=== PATIENT | female | born 1950 | race African-American/Black ===

== ENCOUNTER 2020-08-15 12:56 | Inpatient (IN) | payer MEDICARE, MEDICAID, SELFPAY ==
[2020-08-15] VITALS (20 sets, daily range): BP systolic 80–118; BP diastolic 53–91; PULSE 101–117; RESP 18–32; TEMP 36.2–36.6; O2SAT 92–100; BMI 36.8; BMI 35.7; BMI 35.8
--- NOTE | 2020-08-15 12:57 | EKG12_ITS ---
Test Reason : AM EKG Blood Pressure : / mmHG Vent. Rate : 114 BPM Atrial Rate : 114 BPM P-R Int : 154 ms QRS Dur : 084 ms QT Int : 342 ms P-R-T Axes : 029 -15 089 degrees QTc Int : 471 ms Sinus tachycardia Otherwise normal ECG When compared with ECG of 15-AUG-2020 13:10, MANUAL COMPARISON REQUIRED, DATA IS UNCONFIRMED Confirmed by KENNY CORTÉS, ANGUS ([id number]), fashion editor SOLEDAD BADILLO ([id number]) on 08/19/2020 10:47:04 AM Referred By: JASON Confirmed By:ANGUS COX MD
--- NOTE | 2020-08-15 12:57 | CT_ITS ---
STUDY: CT BRAIN WITHOUT CONTRAST REASON FOR EXAM: Female, 69 years old. STROKE, FACIAL DROOP RADIATION DOSAGE (If Supplied By Facility): CTDIvol = ( 60.81 ) mGy, DLP = ( 1067.08 ) mGycm TECHNIQUE: Transaxial CT imaging of the brain was performed without administration of intravenous contrast material. Individualized dose optimization techniques were used for this CT. COMPARISON: No relevant priors. FINDINGS: Normal soft tissue structures. Normal calvarium. There is mild cerebral atrophy with widening of the extra-axial spaces and ventricular dilatation. There are areas of decreased attenuation within the white matter tracts of the supratentorial brain, consistent with microvascular disease changes. There is evidence of prior small lacunar infarcts in the basal ganglia bilaterally as well as the left thalamus.. Normal brainstem. Normal cerebellum. There is no intracranial hemorrhage. There are no findings of an acute ischemic infarction. Normal visualized paranasal sinuses. CT/Brain/Head without Contrast IMPRESSION: Chronic involutional changes of the brain. Small old lacunar infarcts in the basal ganglia bilaterally as well as the left thalamus. N.B. : The above information has been verbally conveyed by Eyal Campoverde to JULIANO West on 08/15/2020 13:20:33 (ET). Electronically Signed: Eyal Campoverde, at 13:21 EDT , Service support ,
[2020-08-15 13:15] LABS: Bedside Glucose 79 mg/dL (70-110)
--- NOTE | 2020-08-15 13:32 | ED.RN ---
Dysphagia screening not done. Pt will not stay awake
[2020-08-15] MEDS: 0.9% Normal Saline 1,000 ML 999 ML IV ×2 (13:39→14:06)
--- NOTE | 2020-08-15 13:41 | ED.RN ---
dr flores said facial droop chronic. d/c neuro checks
[2020-08-15 13:53] LABS: Absolute Lymphocyte Count 0.65 X10^3/uL (0.83-4.51); Absolute Neutrophil Count 12.1 X10^3/uL (2.0-7.7); Basophil# 0.02 X10^3/uL; Basophil% 0.2 % (0-1); Hematocrit 37.1 % (37-47); Lymphocyte # 0.65 X10^3/ul (4.0); Mean Corp Hgb Conc 29.6 g/dL (32-36); Mean Corpuscular Volume 87.7 fL (81-99); Mean Platelet Vol. 10.5 fl (6.2-12.0); Monocyte# 0.21 X10^3/uL; Monocyte% 1.6 % (0-10); NRBC Flagged by Analyzer 0 % (0-5); Neutrophil # 12.12 X10^3/uL (2.7-7.7); Neutrophil % 92.4 % (47-70); POSITIVE MORPHOLOGY YES; Platelet Count 176 K/mm3 (150-450); RBC Distribution Width CV 14.6 % (11.6-14.6); RBC Distribution Width SD 46.6 fl (35.1-43.9); Red Blood Count 4.23 M/mm3 (4.2-5.4); White Blood Count 13.1 K/mm3 (4.4-11.0)
[2020-08-15 14:13] LABS: Mucous, Urine 0 SEEN /hpf (<or=2+)
[2020-08-15 14:17] LABS: Partial Thromboplast Time 26.6 Seconds (24.1-36.2)
[2020-08-15 14:18] LABS: International Normalized Ratio 1.2; Prothrombin Time (Protime)PT. 14.9 SECONDS (11.7-14.9)
[2020-08-15 14:20] LABS: Color, Urine Yellow (Yellow); Glucose, Dipstick Normal (Normal); Ketone-Dipstick 5 mg/dl (Negative); Leukocyte Esterase-Dipstick 500 /ul (Negative); Nitrite-Dipstick Negative (Negative); Occult Blood-Urine 50 /ul (Negative); Protein-Dipstick 30 mg/dl (Negative); Urine Bilirubin Dipstick Negative (Negative); Urine Clarity Sl. Cloudy (Clear); Urine Urobilinogen Normal (Normal)
[2020-08-15 14:23] LABS: Anion Gap 9 (5-15); BUN 38 mg/dL (7-18); BUN/Creat Ratio 20.7 RATIO (10-20); Calcium,Total 9.3 mg/dL (8.5-10.1); Chloride 117 mmol/L (98-107); Creatinine, Serum 1.84 mg/dL (0.55-1.02); Differential Comment SCANNED; Differential Indicated SCAN CRITERIA MET; EST Glomerular Filtration Rate 29 mL/min (>60); Est Glom Filt Rate - Afr Amer 35 mL/min (>60); Estimated Creatinine Clearance 27.01 ml/min; Glucose 68 mg/dL (74-106); Lactic Acid 3.9 mmol/L (0.4-1.9); Potassium 3.1 mmol/L (3.5-5.1); Sodium Level 146 mmol/L (136-145)
[2020-08-15 14:38] LABS: Bacteria 3+ /hpf (None Seen); Red Blood Cells-Urine 0-5 SEEN /hpf (0-5); Squamous Epithelial Cells - UA 5-10 SEEN /hpf (5-10); White Blood Cells 50-100 SEEN /hpf (0-5)
--- NOTE | 2020-08-15 14:40 | RAD_ITS ---
STUDY: X-RAY CHEST REASON FOR EXAM: Female, 69 years old. STROKE, FACIAL DROOP TECHNIQUE: Single AP portable view of the chest. COMPARISON: None. FINDINGS: EKG electrodes are seen. The lungs are clear and expanded. There is no demonstrated pleural abnormality. Normal size heart. Normal mediastinum and yoseph. Normal visualized pulmonary arteries. There is atherosclerotic tortuosity of the aortic arch and descending thoracic aorta. There are mild degenerative changes of the visualized thoracic spine. Normal visualized ribs, clavicles, and shoulders. There is no demonstrated abnormality of the visualized soft tissue structures of the upper abdomen. RAD/Chest 1 View IMPRESSION: No acute abnormality is seen. Electronically Signed: Eyal Campoverde, at 14:55 EDT , Service support ,
--- NOTE | 2020-08-15 15:09 | PCM.HP.STD ---
Problem List (1) Type 2 diabetes mellitus Status: Chronic (2) History of CVA (cerebrovascular accident) Status: Chronic Comment: Chronic left facial droop (3) Hypertension Status: Chronic (4) Hyperlipemia Status: Chronic (5) Iron deficiency anemia Status: Chronic (6) UTI (urinary tract infection) Status: Acute (7) Severe sepsis Status: Acute (8) NSTEMI (non-ST elevated myocardial infarction) Status: Acute History of Present Illness Date of Admission: 08/15/20 Chief Complaint: Unresponsive at [facility]. The patient is a 69 year old F he was found to be unresponsive at [facility]. Patient was also noted to have a left facial droop by EMS however this was discovered to be chronic in nature from prior CVA. No family at bedside during evaluation. Unable to obtain HPI from patient due to lethargy and confusion. She denies symptoms or complaints when asked. Per [facility] records, she has a past medical history of CVA, type 2 diabetes mellitus, hypertension, hyperlipidemia, iron deficiency anemia, GERD. Past Medical History Past Medical History (Chronic Problems): Chronic Problems Type 2 diabetes mellitus (Chronic) History of CVA (cerebrovascular accident) (Chronic) Chronic left facial droop Hypertension (Chronic) Hyperlipemia (Chronic) Iron deficiency anemia (Chronic) Home Medications: Ambulatory Orders Medication Instructions Recorded Acetaminophen [Tylenol Extra 1,000 mg PO BID 08/15/20 Strength] Amlodipine [Norvasc] 10 mg PO DAILY 08/15/20 Atorvastatin Calcium 40 mg PO QHS 08/15/20 Ferrous Sulfate [Ferosul] 325 mg PO DAILY 08/15/20 Insulin Aspart [Novolog Flexpen 4 units SC TIDCM 08/15/20 ([facility])] Insulin Aspart [Novolog Flexpen See Protocol SC BIDCM 08/15/20 ([facility])] Insulin Glargine,Hum.rec.anlog 40 unit SQ QHS 08/15/20 [Basaglar Kwikpen U-100] Lidocaine/Menthol [Icy Hot 4%-1% 1 ea TP Q12H 08/15/20 Patch] Lisinopril [Zestril] 5 mg PO DAILY 08/15/20 Omeprazole [Prilosec] 20 mg PO DAILY 08/15/20 Oxycodone HCl 5 mg PO DAILY 08/15/20 Oxycodone HCl 5 mg PO Q8H PRN PRN 08/15/20 Surgical History: - - Unable to obtain due to patient confusion. 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 Lives: Shelter Smoking Status: Unknown if ever smoked Tobacco Use: - - Unknown due to patient confusion Drugs: - - Unknown due to patient confusion - *Family History Maternal History Items: - - Patient unable to state maternal medical history due to confusion Paternal History Items: - - Patient unable to state paternal medical history due to confusion Review of Systems Unable to obtain accurate/complete ROS d/t: Unable to obtain ROS due to patient lethargy and confusion VTE Information - Inpt Only VTE Present on Admission: No VTE Mechan Device Prophylaxis: None VTE Pharm Prophylaxis ordered?: Yes Patient Problems: Active and Suspected Problems UTI (urinary tract infection) (Acute) Severe sepsis (Acute) NSTEMI (non-ST elevated myocardial infarction) (Acute) - Physical Exam Vitals/I&O's: Vital Signs Temp Pulse Resp BP Pulse Ox 98 F 108 H 24 H 91/63 97 08/15/20 13:17 08/15/20 14:04 08/15/20 14:04 08/15/20 14:04 08/15/20 14:04 Oxygen Delivery Method Room Air Weight: 228 lb 2.855 oz Body Mass Index (BMI) 36.8 Finger Stick Blood Glucose 123 Intake and Output for Last 24 Hours 08/13/20 08/14/20 08/15/20 23:59 23:59 23:59 Intake Total 1000 / 1000 Balance 1000 / 1000 General: Confused, Lethargic HEENT: Atraumatic, PERRLA, EOMI, Normocephalic Oral: Dry Mucosa Neck: Supple, No JVD, Negative Carotid Bruits Lungs: Clear to auscultation, Diminished, Tachypneic Cardiovascular: Regular Rhythm, Normal S1, Normal S2, Tachycardic Abdomen: Bowel Sounds Present, Soft, Non Tender, Non-Distended, Obese Extremities: No clubbing, No cyanosis, Edema - Bilateral lower extremity Skin: No rashes, No breakdown Musculoskeletal: No Tenderness to Palpation of Joints or Extremities Neurological: Cranial nerves II-XII grossly intact, - - Chronic left facial droop Psych/Mental Status: Normal Affect Laboratory Results 08/15/20 13:10: POC Glucose 79 08/15/20 13:45: WBC 13.1 H, RBC 4.23, Hgb 11.0 L, Hct 37.1, MCV 87.7, MCH 26.0 L, MCHC 29.6 L, RDW Std Deviation 46.6 H, RDW Coeff of Nely 14.6, Plt Count 176, MPV 10.5, Immature Gran % (Auto) 0.800, Neut % (Auto) 92.4 H, Lymph % (Auto) 5.0 L, [place] % (Auto) 1.6, Eos % (Auto) 0.0, Baso % (Auto) 0.2, Absolute Neuts (auto) 12.1 H, Absolute Lymphs (auto) 0.65 L, Nucleated RBC % 0, Differential Comment SCANNED 08/15/20 13:45: PT 14.9, INR 1.2, APTT 26.6 08/15/20 13:45: Sodium 146 H, Potassium 3.1 L, Chloride 117 H, Carbon Dioxide 20.0 L, Anion Gap 9, BUN 38 H, Creatinine 1.84 H, Estim Creat Clear Calc 27.01, Est GFR (MDRD) Af Amer 35 L, Est GFR (MDRD) Non-Af 29 L, BUN/Creatinine Ratio 20.7 H, Glucose 68 L, Calcium 9.3, Troponin I 6.670 H* 08/15/20 13:45: Lactic Acid 3.9 H* 08/15/20 14:00: Urine Color Yellow, Urine Clarity Sl. Cloudy, Urine pH 5.0, Ur Specific [place] 1.020, Urine Protein 30 H, Urine Glucose (UA) Normal, Urine Ketones 5 H, Urine Occult Blood 50 H, Urine Nitrite Negative, Urine Bilirubin Negative, Urine Urobilinogen Normal, Ur Leukocyte Esterase 500 H, Urine RBC 0-5 SEEN, Urine WBC 50-100 SEEN, Ur Squamous Epith Cells 5-10 SEEN, Urine Bacteria 3+, Urine Mucus 0 SEEN Current Medications Heparin Sodium (Porcine) (Heparin Injection (Vial) 5,000 Unit/Ml Vial) 8,000 unit IV BOLUS ONE Stop: 08/15/20 15:11 Heparin Sodium (Porcine) (Heparin Injection (Vial) 5,000 Unit/Ml Vial) 0 unit IV UD PRN; Protocol PRN Reason: dose adjustment Ceftriaxone Sodium (Rocephin) 1 gm in 50 mls @ 100 mls/hr IV X1 ONE Stop: 08/15/20 15:11 Heparin Sodium/Dextrose () 25,000 units in 250 mls @ 15 mls/hr IV .[id number] NICOLE; Protocol Iopamidol (Contrast Allergy Safety Check) 0 ml IV X1 [facility] Assessment/Plan All Active Problems UTI (urinary tract infection) (Acute) Severe sepsis (Acute) NSTEMI (non-ST elevated myocardial infarction) (Acute) 1. Severe sepsis secondary to UTI-fluids per sepsis protocol. Repeat lactic acid per protocol. Urine and blood cultures pending. Continue IV Rocephin. 2. NSTEMI-trend enzymes. Cardiology consulted. Heparin drip. Obtain echocardiogram. Aspirin, statin. 3. SEGUN versus CKD-unknown baseline. IV fluids per sepsis protocol. Trend BMP. 4. Hypokalemia-replace per protocol, trend BMP. 5. Type 2 diabetes [id number] with sliding scale insulin. Continue home long-acting regimen. 6. Hypertension-hold amlodipine, lisinopril due to hypotension. 7. Hyperlipidemia-continue statin. 8. GERD-continue PPI. DVT prophylaxis-Heparin drip CODE STATUS: Per ER physician discussion with family, DNR CCA no intubation. This patient was seen by Leandra Hidalgo NP-C under the supervision of Dr. Gaytan.
[2020-08-15] MEDS: Ceftriaxone 1 GM/50 ML BAG IV (15:19)
[2020-08-15] MEDS: Aspirin 300 MG Suppository RECTAL (15:20)
--- NOTE | 2020-08-15 15:23 | ECHOCS_ITS ---
Reason For Study: NSTEMI Procedure This was a 2D Doppler, Color Flow transthoracic echocardiogram. The study was technically difficult. Contrast injection was performed. Exam performed portable in ED. The exam was abbreviated due to the COVID 19 protocol. Left Ventricle Left ventricular systolic function is normal. The estimated ejection fraction is 65 %. Diastolic function is indeterminate. No regional wall motion abnormalities noted. Right Ventricle Normal RV size. Normal systolic function. Atria The left atrium is mildly enlarged. Normal right atrium. No doppler evidence for ASD. Mitral Valve There is no mitral annular calcification. Normal mitral valve. Trivial mitral valve insufficiency. Tricuspid Valve Normal tricuspid valve. Trivial tricuspid valve insufficiency. Right ventricular systolic pressure estimated to be 36 mmHg. Aortic Valve Trisinus/trileaflet aortic valve. Normal aortic valve. Pulmonic Valve The pulmonic valve is not well visualized. Trivial pulmonic valve insufficiency. Great Vessels The aortic root is not well visualized. Pericardium/Pleural No pericardial effusion. Medication Diluted definity 3.0ml given slow IV push to enhance endocardial definition. Performed a rapid injection of agitated mix of 9 cc saline and 1cc air to assess for atrial septal defect. MMode/2D Measurements & Calculations Ao root diam: 3.2 cm LAV(MOD-bp): 47.2 ml LA A4 area: 19.4 cm2 LAV(MOD-bp) Indexed: 22.3 ml/m2 LAV(MOD-sp2): 33.9 ml LAV(MOD-sp4): 48.7 ml LA dimension(2D): 3.5 cm RA A4 area: 12.2 cm2 Time Measurements MV dec time: 0.10 sec Doppler Measurements & Calculations MV E max akash: 46.8 cm/sec Lat Peak E' Akash: 9.0 cm/sec Med Peak E' Akash: 6.9 cm/sec MV A max akash: 103.9 cm/sec E/E' lat: 5.2 E/E' med: 6.8 MV E/A: 0.45 TR max akash: 286.8 cm/sec TR max P.9 mmHg Interpretation Summary The study was technically difficult. Contrast injection was performed. Left ventricular systolic function is normal. The estimated ejection fraction is 65 %. The left atrium is mildly enlarged. Trivial mitral valve insufficiency. Trivial tricuspid valve insufficiency. Trivial pulmonic valve insufficiency. Right ventricular systolic pressure estimated to be 36 mmHg. Diastolic function is indeterminate. Ordering Physician: Leandra Hidaglo Referring Physician: ANT TRONCOSO Performed By: Lay OSCAR RVT, Carrie and Student
[2020-08-15] MEDS: Heparin Injection (Vial) 5,000 UNIT/ML VIAL 8000 UNIT IV (15:27)
[2020-08-15] MEDS: HEPARIN/D5w 25,000 UNITS 25,000 UNITS/250 ML IV.SOLN. 1.5 UNITS IV (15:28)
--- NOTE | 2020-08-15 15:35 | CON.PCM_ITS ---
Reason for Consult Date of Consultation: 08/15/20 Reason for Consultation: Abnormal cardiac enzyme. Hypotension. Urosepsis. HTN. HLD. CVA (remote) History of Present Illness: The patient is a 69 year old -[place] female [facility] resident with a history of hypertension, hyperlipidemia, remote CVA, who presents for concerns of being unresponsive and subsequently found to have concerns of urosepsis and hypotension and an abnormal cardiac enzyme. Based upon the patient's trinh llection she has no other cardiovascular disease and she does not recall undergoing any cardiovascular evaluation in the past. She denies any ongoing chest discomfort or difficulty breathing. She has not recognized any orthopnea or PND. There is been no palpitations or rapid rates. There is been no report of near syncope or syncope. In the emergency department she has been receiving IV antibiotics and IV fluids. She had a troponin I level performed of 6.67. Her ECG demonstrated sinus tachycardia with nonspecific ST/T wave abnormality in inferior OR pattern of indeterminate age cannot be excluded. Her chest x-ray reportedly demonstrated no acute cardiopulmonary disease process. She has been reported, after IV fluids, to appear more responsive. She appears to be resting comfortably at this time and does not complain of any acute symptoms. Of note, based upon her being unresponsive and her remote CVA residual effects, she underwent a repeat stroke alert evaluation. [] Past Medical History Home Medications: Ambulatory Orders Medication Instructions Recorded Acetaminophen [Tylenol Extra 1,000 mg PO BID 08/15/20 Strength] Amlodipine [Norvasc] 10 mg PO DAILY 08/15/20 Atorvastatin Calcium 40 mg PO QHS 08/15/20 Ferrous Sulfate [Ferosul] 325 mg PO DAILY 08/15/20 Insulin Aspart [Novolog Flexpen 4 units SC TIDCM 08/15/20 ([facility])] Insulin Aspart [Novolog Flexpen See Protocol SC BIDCM 08/15/20 ([facility])] Insulin Glargine,Hum.rec.anlog 40 unit SQ QHS 08/15/20 [Basaglar Kwikpen U-100] Lidocaine/Menthol [Icy Hot 4%-1% 1 ea TP Q12H 08/15/20 Patch] Lisinopril [Zestril] 5 mg PO DAILY 08/15/20 Omeprazole [Prilosec] 20 mg PO DAILY 08/15/20 Oxycodone HCl 5 mg PO DAILY 08/15/20 Oxycodone HCl 5 mg PO Q8H PRN PRN 08/15/20 Past Medical History (Chronic Problems): Chronic Problems Type 2 diabetes mellitus (Chronic) History of CVA (cerebrovascular accident) (Chronic) Chronic left facial droop Hypertension (Chronic) Hyperlipemia (Chronic) Iron deficiency anemia (Chronic) Surgical History: - - Unable to obtain due to patient confusion. 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 Lives: Senior Living Smoking Status: Unknown if ever smoked Drugs: - - Unknown due to patient confusion Review of Systems - Review of Systems General: Denies: Fever, Night Sweats, Fatigue Cardiovascular: Denies: Chest Discomfort, Shortness of Breath, Orthopnea, PND, Peripheral Edema, Palpitations, Lightheadedness, Dizziness, Near Syncope, Syncope Respiratory: Denies: Cough, Sputum Production, Hemoptysis Gastrointestinal: Denies: Hematemesis, Hematochezia, Melena Genitourinary: Denies: Dysuria, Hematuria Skin: Denies: Rash Subjectve: Is a 69-year-old -[place] female who appears to be resting comfortably in the supine position with no acute complaints at the moment. Objective: Vital Signs Temp Pulse Resp BP Pulse Ox 97.9 F 107 H 26 H 95/60 97 08/15/20 15:34 08/15/20 15:34 08/15/20 15:34 08/15/20 15:34 08/15/20 15:34 Oxygen Delivery Method Room Air Weight: 228 lb 2.855 oz Body Mass Index (BMI) 36.8 Finger Stick Blood Glucose 123 Intake and Output for Last 24 Hours 08/13/20 08/14/20 08/15/20 23:59 23:59 23:59 Intake Total 1000 / 1000 Balance 1000 / 1000 General: Awake, Cooperative, No Acute Distress, Obese HEENT: Atraumatic, Normocephalic, PERRL, EOMI, Sclera Non Icteric Neck: Supple, No JVD Lungs: Clear to auscultation Cardiovascular: Regular Rhythm, Normal S1, Normal S2 Abdomen: Bowel Sounds Present, Soft, Obese Extremities: No edema 08/15/20 13:45: WBC 13.1 H, RBC 4.23, Hgb 11.0 L, Hct 37.1, MCV 87.7, MCH 26.0 L , MCHC 29.6 L, Plt Count 176, MPV 10.5, Immature Gran % (Auto) 0.800, Neut % (Auto) 92.4 H, Lymph % (Auto) 5.0 L, [place] % (Auto) 1.6, Eos % (Auto) 0.0, Baso % (Auto) 0.2, Absolute Neuts (auto) 12.1 H, Nucleated RBC % 0 08/15/20 13:45: PT 14.9, INR 1.2, APTT 26.6 08/15/20 13:45: Sodium 146 H, Potassium 3.1 L, Chloride 117 H, Carbon Dioxide 20.0 L, Anion Gap 9, BUN 38 H, Creatinine 1.84 H, Est GFR (MDRD) Af Amer 35 L, Est GFR (MDRD) Non-Af 29 L, BUN/Creatinine Ratio 20.7 H, Glucose 68 L, Calcium 9.3, Troponin I 6.670 H* 08/15/20 13:45: Lactic Acid 3.9 H* 08/15/20 14:00: Urine Color Yellow, Urine Clarity Sl. Cloudy, Urine pH 5.0, Ur Specific [place] 1.020, Urine Protein 30 H, Urine Glucose (UA) Normal, Urine Ketones 5 H, Urine Occult Blood 50 H, Urine Nitrite Negative, Urine Bilirubin Negative, Urine Urobilinogen Normal, Ur Leukocyte Esterase 500 H, Urine RBC 0-5 SEEN, Urine WBC 50-100 SEEN Rhythm: Sinus tachycardia EKG: As noted above CXR: As noted above Assessment/Plan 1. Abnormal cardiac enzymes The patient does have abnormal cardiac enzymes. This is being reported in the setting of urosepsis. Thus it is unclear whether this is a type II event secondary to supply demand mismatch versus undiagnosed CAD with a type I event. The present time she appears to be without any acute symptoms. Her ECG demonstrates no acute changes. She will be monitored. Her enzymes and her ECG can be followed. She will be asked to have an echocardiogram to assess her left ventricular wall motion systolic function. Depending upon her clinical course she may eventually need further evaluation with cardiac catheterization unless otherwise contraindicated by her history of CVA or other medical conditions. 2. Hypotension She has been hypotensive. Again this is thought related to her underlying concerns of urosepsis at this time. She is receiving IV fluids. Her blood pressure is improving. She will continue to be followed. 3. Hypertension She apparently has a history of hypertension has been on antihypertensive medi cations. They will be on hold at this time pending further evaluation care. 4. Hyperlipidemia She will continue risk factor evaluation care as deemed appropriate. 5. CVA She does have a history of a remote CVA. Apparently, after her evaluation today, there was no new acute concerns. Thus she is going to continue evaluation care per internal medicine. This note was generated using a voice recognition system and there may be incorrect words, spelling or punctuation that were not noted when reviewing the office note prior to saving.
--- NOTE | 2020-08-15 16:19 | ED.DCSUM_ITS ---
History of Present Illness Chief Complaint: Neuro S/Sx Informant: [employer], [facility] Narrative: 69-year-old female with past medical history of hypertension, hyperlipidemia, CVA presents with concern for altered mentation and hypotension. Patient found to have a low blood pressure and did become nonresponsive for period of time. EMS concern for new left-sided facial droop and squad. Stroke team was called in the field. Upon arrival patient is alert but does seem somewhat drowsy. Has an NIH of 1 secondary to left-sided facial droop. Has no complaints at this time. Past Medical History - Allergies and Home Meds Allergies/Adverse Reactions: Allergies tramadol [From Ultram] Allergy (Verified 08/15/20 15:51) PT UNSURE OF REACTION Prior records reviewed: Yes Past Medical History: - - CVA, HTN, HLD Surgical History: - - Unable to obtain due to patient confusion. Lives: Shelter Smoking Status: Unknown if ever smoked Alcohol: None Drugs: None, - - Unknown due to patient confusion - Family History Maternal Family History: Reports: - - Patient unable to state maternal medical history due to confusion Paternal Family History: Reports: - - Patient unable to state paternal medical history due to confusion Review of Systems General: Denies: Chills, Fever, Sweats Eyes: Denies: Visual changes - bilaterally, Diplopia ENT: Denies: Rhinorrhea, Sore throat Cardiovascular: Denies: Chest pain, Palpitations Respiratory: Denies: Dyspnea, Cough, Dyspnea on exertion Gastrointestinal: Denies: Abdominal pain, Nausea, Vomiting, Diarrhea, Melena, Hematochezia Genitourinary: Denies: Dysuria, Hematuria, Frequency Musculoskeletal: Denies: Back pain, Extremity Pain Skin: Denies: Rash, Wounds Neurological: Reports: - - facial droop and altered mentation. Denies: Headache, Weakness, Numbness Physical Exam Vital Signs/Narrative: Vital Signs Temp Pulse Resp BP Pulse Ox 08/15/20 16:00 108 H 24 H 92/63 100 08/15/20 15:34 97.9 F 107 H 26 H 95/60 97 08/15/20 15:00 107 H 18 97/71 98 08/15/20 14:04 108 H 24 H 91/63 97 08/15/20 13:44 111 H 24 H 102/69 97 08/15/20 13:17 98 F 113 H 29 H 84/53 L 96 08/15/20 13:11 98 F 117 H 32 H 85/63 L 97 08/15/20 13:08 97 Inital Vital Signs reviewed: Yes General: Well nourished, Well developed, No Acute Distress Head: Normocephalic, Atraumatic Eyes: Perrl, EOMI ENT: Moist mucous membranes, No rhinorrhea Neck: Supple, Nontender Cardiovascular: Regular rate, Regular rhythm, No murmurs Respiratory: No distress, CTA bilaterally, Chest nontender Abdomen: Soft, Nontender, Nondistended, Normal bowel sounds Back: Nontender, Normal Inspection Extremities: Nontender, No edema Skin: Normal color, No rash Neurological: Alert, Left side facial droop, - - Bilateral lower extremity weakness. chronic. NIH 1. Psychological: Normal affect, Normal Mood Diagnostic/Tx/Re-eval Chest X-Ray - ED: 1 View, Normal Clinical Impression(s) from Imaging Studies Brain CT 08/15/20 12:57 IMPRESSION: Chronic involutional changes of the brain. Small old lacunar infarcts in the basal ganglia bilaterally as well as the left thalamus. N.B. : The above information has been verbally conveyed by Eyal Campoverde to JULIANO West on 08/15/2020 13:20:33 (ET). Electronically Signed: Eyal Campoverde, at 13:21 EDT , Service support , ADDENDUM: 08/15/20 1328 IMPRESSION: Chronic involutional changes of the brain. Small old lacunar infarcts in the basal ganglia bilaterally as well as the left thalamus. N.B. : The above information has been verbally conveyed by Eyal Campoverde to JULIANO West on 08/15/2020 13:20:33 (ET). Electronically Signed: Eyal Campoverde, at 13:21 EDT , Service support , Chest X-Ray 08/15/20 14:40 IMPRESSION: No acute abnormality is seen. Electronically Signed: Eyal Campoverde, at 14:55 EDT , Service support , Laboratory Data 08/15/20 08/15/20 08/15/20 13:10 13:45 13:45 WBC 13.1 H RBC 4.23 Hgb 11.0 L Hct 37.1 MCV 87.7 MCH 26.0 L MCHC 29.6 L RDW Std Deviation 46.6 H RDW Coeff of Nely 14.6 Plt Count 176 MPV 10.5 Immature Gran % (Auto) 0.800 Neut % (Auto) 92.4 H Lymph % (Auto) 5.0 L [place] % (Auto) 1.6 Eos % (Auto) 0.0 Baso % (Auto) 0.2 Absolute Neuts (auto) 12.1 H Absolute Lymphs (auto) 0.65 L Nucleated RBC % 0 Differential Comment SCANNED PT 14.9 INR 1.2 APTT 26.6 Sodium Potassium Chloride Carbon Dioxide Anion Gap BUN Creatinine Estim Creat Clear Calc Est GFR (MDRD) Af Amer Est GFR (MDRD) Non-Af BUN/Creatinine Ratio Glucose Lactic Acid Calcium Troponin I Urine Color Urine Clarity Urine pH Ur Specific [place] Urine Protein Urine Glucose (UA) Urine Ketones Urine Occult Blood Urine Nitrite Urine Bilirubin Urine Urobilinogen Ur Leukocyte Esterase Urine RBC Urine WBC Ur Squamous Epith Cells Urine Bacteria Urine Mucus POC Glucose 79 08/15/20 08/15/20 08/15/20 13:45 13:45 14:00 WBC RBC Hgb Hct MCV MCH MCHC RDW Std Deviation RDW Coeff of Nely Plt Count MPV Immature Gran % (Auto) Neut % (Auto) Lymph % (Auto) [place] % (Auto) Eos % (Auto) Baso % (Auto) Absolute Neuts (auto) Absolute Lymphs (auto) Nucleated RBC % Differential Comment PT INR APTT Sodium 146 H Potassium 3.1 L Chloride 117 H Carbon Dioxide 20.0 L Anion Gap 9 BUN 38 H Creatinine 1.84 H Estim Creat Clear Calc 27.01 Est GFR (MDRD) Af Amer 35 L Est GFR (MDRD) Non-Af 29 L BUN/Creatinine Ratio 20.7 H Glucose 68 L Lactic Acid 3.9 H* Calcium 9.3 Troponin I 6.670 H* Urine Color Yellow Urine Clarity Sl. Cloudy Urine pH 5.0 Ur Specific [place] 1.020 Urine Protein 30 H Urine Glucose (UA) Normal Urine Ketones 5 H Urine Occult Blood 50 H Urine Nitrite Negative Urine Bilirubin Negative Urine Urobilinogen Normal Ur Leukocyte Esterase 500 H Urine RBC 0-5 SEEN Urine WBC 50-100 SEEN Ur Squamous Epith Cells 5-10 SEEN Urine Bacteria 3+ Urine Mucus 0 SEEN POC Glucose - Rhythm Strip Rhythm Strip: Sinus Tach Rate: 114 Ectopy: None - EKG Initial EKG Interpretation: Sinus Tachycardia - Sinus tachycardia 114 bpm. NE interval 180 ms. QTC [address] changes. - Medical Decision Making Was initially called a stroke alert in the field. Patient's initial NIH of 1. Taken to CT. CT brain read emergently which shows old strokes with no new strokes or bleeding. Discussion with the 2 daughters who are power of commonwealth attorney it appears that the left facial droop is chronic but the snf was unaware because she is new to this facility. Patient states she is DNR comfort care however discussion with the daughters they would like everything other than CPR and being placed on the ventilator. Patient status will be made DNR CCA DO NOT INTUBATE. Lab work shows a leukocytosis, lactic acidosis, urinary tract infection. Patient was hypotensive and given 2 L of normal saline. Patient blood pressure did increase above 100. Currently 95 systolic with a MAP of 74. Patient was given Rocephin for her UTI. Troponin found to be 6.6. EKG appears nonischemic. Consulted cardiology who examined the patient at the bedside. Dr. Rivera requested aspirin as well as heparin. Patient will be admitted to the ICU for further evaluation and treatment. Impression: 1. Severe sepsis 2. UTI 3. NSTEMI 4. Hypokalemia - Critical Care Time Critical care time (excluding procedures): 30-74 minutes, Discussing w/Patient &/or Family/Exhaust Emissions Inspector, Discussing w/Consultants, Arranging Admission or Transfer, Performing Direct Patient Care at Bedside
--- NOTE | 2020-08-15 16:36 | ED.RN ---
report given to family . Family does not want to get any oxy pain meds. Pt does great on tylenol
[2020-08-15 16:55] LABS: Bedside Glucose 100 mg/dL (70-110)
--- NOTE | 2020-08-15 17:07 | NURSING ---
report given to babatunde
[2020-08-15 17:12] LABS: AST(SGOT) 488 U/L (15-37); Alanine Aminotransfer ALT/SGPT 326 U/L (13-56); Albumin, Serum 2.4 g/dL (3.2-5.0); Alkaline Phosphatase 233 U/L (45-117); Bilirubin, Direct 0.54 mg/dL (0.00-0.30); Globulin 4.6 g/dL (2.2-4.2)
[2020-08-15 17:17] LABS: Hemoglobin A1c 7.7 % (3.8-5.6); Magnesium 1.9 mg/dL (1.6-2.6)
[2020-08-15] MEDS: Dextrose 5%/0.9% NaCl 1,000 ML 125 ML IV (17:30)
[2020-08-15 17:39] LABS: Lactic Acid 3.5 mmol/L (0.4-1.9)
[2020-08-15 17:41] LABS: Magnesium 1.8 mg/dL (1.6-2.6)
[2020-08-15 17:50] LABS: Reflex Lactate? Y
[2020-08-15 19:22] LABS: Lactic Acid 0.9 mmol/L (0.4-1.9)
[2020-08-15] MEDS: Acetaminophen 325 MG Tablet 650 MG PO (19:58)
[2020-08-15] MEDS: Potassium Chloride 10mEq/100mL 10 MEQ/100 ML IV.SOLN. 100 MEQ IV BOLUS ×4 (20:38→23:32)
[2020-08-15 20:39] LABS: Reflex Lactate? Y
[2020-08-15 21:14] LABS: Partial Thromboplast Time > 250.0 Seconds (24.1-36.2)
[2020-08-15] MEDS: Insulin Lispro 100 UNIT/ML INSULN.PEN SC (21:14)
[2020-08-15] MEDS: Atorvastatin Calcium 40 MG Tablet PO (21:16)
[2020-08-15 21:41] LABS: Bedside Glucose 156 mg/dL (70-110)
[2020-08-15 22:05] LABS: Lactic Acid 3.6 mmol/L (0.4-1.9)
[2020-08-16] VITALS (41 sets, daily range): BP systolic 78–123; BP diastolic 44–90; PULSE 104–136; RESP 15–26; TEMP 36.5–37.6; O2SAT 96–100
[2020-08-16] MEDS: Dextrose 5%/0.9% NaCl 1,000 ML 125 ML IV (01:43)
[2020-08-16 04:01] LABS: Bedside Glucose 205 mg/dL (70-110)
[2020-08-16 05:40] LABS: Hematocrit 39.8 % (37-47); Hemoglobin 11.4 g/dL (12.0-15.0); Mean Corp Hgb Conc 28.6 g/dL (32-36); Mean Corpuscular Hgb 26.1 pg (27.0-32.0); Mean Corpuscular Volume 91.1 fL (81-99); Mean Platelet Vol. 11.4 fl (6.2-12.0); POSITIVE COUNT YES; POSITIVE DIFFERENTIAL YES; POSITIVE MORPHOLOGY YES; Platelet Count 173 K/mm3 (150-450); RBC Distribution Width CV 14.8 % (11.6-14.6); RBC Distribution Width SD 49.9 fl (35.1-43.9); Red Blood Count 4.37 M/mm3 (4.2-5.4)
[2020-08-16 05:43] LABS: Differential Indicated MANUAL DIFF; White Blood Count 36.6 K/mm3 (4.4-11.0)
--- NOTE | 2020-08-16 05:55 | EKG12_ITS ---
Test Reason : STROKE TEAM Blood Pressure : / mmHG Vent. Rate : 114 BPM Atrial Rate : 114 BPM P-R Int : 180 ms QRS Dur : 098 ms QT Int : 320 ms P-R-T Axes : 027 -09 066 degrees QTc Int : 441 ms Sinus tachycardia Nonspecific ST and T wave abnormality Abnormal ECG Confirmed by CHAITANYA CORTÉS, HAILEE ([id number]), brands editor SOLEDAD BADILLO ([id number]) on 08/18/2020 11:30:49 AM Referred By: MASOUD Confirmed By:HAILEE TAVARES MD
[2020-08-16 06:00] LABS: ALB/GLOB Ratio 0.5 RATIO (0.9-2.4); AST(SGOT) 257 U/L (15-37); Alanine Aminotransfer ALT/SGPT 272 U/L (13-56); Albumin, Serum 2.6 g/dL (3.2-5.0); Alkaline Phosphatase 208 U/L (45-117); Anion Gap 11 (5-15); BUN 44 mg/dL (7-18); BUN/Creat Ratio 19.1 RATIO (10-20); Calcium,Total 8.6 mg/dL (8.5-10.1); Chloride 113 mmol/L (98-107); Cholesterol 104 mg/dL (200); EST Glomerular Filtration Rate 22 mL/min (>60); Est Glom Filt Rate - Afr Amer 27 mL/min (>60); Estimated Creatinine Clearance 21.61 ml/min; Globulin 4.9 g/dL (2.2-4.2); Glucose 192 mg/dL (74-106); High Density Lipoprotein 66 mg/dL; Protein, Total 7.5 g/dL (6.4-8.2); Sodium Level 142 mmol/L (136-145); Triglycerides 55 mg/dL; Very Low Density Lipoprotein 11 mg/dL (5-40)
[2020-08-16 06:06] LABS: Partial Thromboplast Time 223.3 Seconds (24.1-36.2)
--- NOTE | 2020-08-16 06:08 | PCM.CON.CC ---
Reason for Consult Date of Consultation: 08/16/20 Reason for Consultation: Severe sepsis History of Present Illness: The patient is a 69-year-old female, with a history as outlined below, who presented from her [facility] facility with encephalopathy. The patient has multiple comorbidities including prior CVA with residual deficits, iron deficiency anemia, decreased mobility, hypertension and hyperlipidemia. History pertinent to the patient's hospitalization was obtained primarily via chart review, as the patient is a poor historian and remains confused. On presentation to the emergency department, the patient was noted to be afebrile, but was tachycardic and tachypneic. Blood pressures were a bit on the low side. Laboratory evaluation revealed an elevated white blood cell count of 13,000. Coagulation profile was within normal limits. Chemistry profile was notable for a sodium of 146, potassium of 3.1, chloride of 117, bicarbonate of 20 and creatinine of 1.84. Glucose was low at 68. Lactate was elevated to 3.9. Initial troponin was increased to 6.67. Urine analysis was negative for nitrates, positive for leukocyte esterase and 3+ urine bacteria. Coronavirus PCR was negative. CT head revealed chronic involutional changes of the brain with small old lacunar infarcts in the basal ganglia bilaterally. Telestroke consultation was obtained. Plain film chest x-ray revealed no acute cardiopulmonary process. Given the patient's troponin elevation, an echocardiogram was obtained which revealed normal LV function with an ejection fraction of 65%. Right ventricular systolic pressure was estimated to be 36 mmHg. The patient was subsequently evaluated by cardiology. The patient received normal saline supplemental IV fluid hydration and was started on a heparin drip. She did receive antimicrobials and was then admitted to the medical intensive care unit for management of her severe sepsis and non-ST segment elevation [place]. Past Medical History Past Medical History (Chronic Problems): Chronic Problems Type 2 diabetes mellitus (Chronic) History of CVA (cerebrovascular accident) (Chronic) Chronic left facial droop Hypertension (Chronic) Hyperlipemia (Chronic) Iron deficiency anemia (Chronic) Allergies tramadol [From Ultram] Adverse Reaction (Verified 08/15/20 17:32) Nausea Home Medications: Ambulatory Orders Medication Instructions Recorded Acetaminophen [Tylenol Extra 1,000 mg PO BID 08/15/20 Strength] Amlodipine [Norvasc] 10 mg PO DAILY 08/15/20 Atorvastatin Calcium 40 mg PO QHS 08/15/20 Ferrous Sulfate [Ferosul] 325 mg PO DAILY 08/15/20 Insulin Aspart [Novolog Flexpen 4 units SC TIDCM 08/15/20 ([facility])] Insulin Aspart [Novolog Flexpen See Protocol SC BIDCM 08/15/20 ([facility])] Insulin Glargine,Hum.rec.anlog 40 unit SQ QHS 08/15/20 [Basaglar Kwikpen U-100] Lidocaine/Menthol [Icy Hot 4%-1% 1 ea TP Q12H 08/15/20 Patch] Lisinopril [Zestril] 5 mg PO DAILY 08/15/20 Omeprazole [Prilosec] 20 mg PO DAILY 08/15/20 Oxycodone HCl 5 mg PO DAILY 08/15/20 Oxycodone HCl 5 mg PO Q8H PRN PRN 08/15/20 Surgical History: - - Unable to obtain due to patient confusion. Psychiatric History: No pertinent psych hx [employer] History: No pertinent [employer] history Lives: [facility] Smoking Status: Unknown if ever smoked Tobacco Use: - - Unknown due to patient confusion Alcohol: None Drugs: None, - - Unknown due to patient confusion - *Family History Maternal History Items: - - Patient unable to state maternal medical history due to confusion Paternal History Items: - - Patient unable to state paternal medical history due to confusion Review of Systems Constitutional: Reports: Fatigue Eyes: Denies: Blurred vision, Double vision HEENT: Denies: Head Aches, Sinus Congestion, Sinus Drainage Cardiovascular: Denies: Chest Pain, Palpitations Respiratory: Denies: Cough, Shortness of breath at rest, Sputum production Gastrointestinal: Denies: Abdominal Pain, Nausea, Vomiting Genitourinary: Reports: Incontinence Musculoskeletal: Denies: Joint Pain, Joint Tenderness Skin: Denies: Rash, Wounds Neurological: Reports: Balance problems Psychiatric: Denies: Anxiety, Depression, Homicidal Ideations, Suicidal Ideations Hematologic/ Lymphatic: Reports: Anemia Patient Problems: Active and Suspected Problems UTI (urinary tract infection) (Acute) Severe sepsis (Acute) NSTEMI (non-ST elevated myocardial infarction) (Acute) Objective: The patient's most recent lab work, culture data and imaging studies have all been personally reviewed. Coronavirus PCR was negative on August 15. Blood and urine cultures are pending. - Physical Exam Vitals/I&O's: Vital Signs Temp Pulse Resp BP Pulse Ox 98.0 F 113 H 22 H 85/57 L 99 08/16/20 03:00 08/16/20 05:00 08/16/20 05:00 08/16/20 05:00 08/16/20 05:00 Oxygen Delivery Method Room Air Weight: 229 lb 11.2 oz Body Mass Index (BMI) 35.7 Finger Stick Blood Glucose 123 Intake and Output for Last 24 Hours 08/14/20 08/15/20 08/16/20 23:59 23:59 23:59 Intake Total 2405.72 / 2414.72 1169 / 1169 Output Total 0 / 0 Balance 2405.72 / 2414.72 1169 / 1169 General: Alert, Cooperative, Confused HEENT: Atraumatic, Normocephalic Oral: Moist Mucosa Neck: Supple, No Nodes, Trachea Midline Lungs: No rhonchi, No wheeze, No rales, Diminished Cardiovascular: Normal S1, Normal S2, No murmurs, Tachycardic Abdomen: Bowel Sounds Present, Soft, Non Tender Extremities: No clubbing, No cyanosis, Edema Skin: No breakdown Musculoskeletal: No Muscle Wasting Lymphatic: No Cervical, Supraclavicular, or Inguinal Adenopathy Neurological: Cranial nerves II-XII grossly intact, - Psych/Mental Status: Flat Affect Labs (Last 48 Hours) 08/15/20 08/15/20 08/15/20 13:10 13:45 13:45 WBC 13.1 H RBC 4.23 Hgb 11.0 L Hct 37.1 MCV 87.7 MCH 26.0 L MCHC 29.6 L RDW Std Deviation 46.6 H RDW Coeff of Nely 14.6 Plt Count 176 MPV 10.5 Immature Gran % (Auto) 0.800 Neut % (Auto) 92.4 H Lymph % (Auto) 5.0 L Franklin % (Auto) 1.6 Eos % (Auto) 0.0 Baso % (Auto) 0.2 Absolute Neuts (auto) 12.1 H Absolute Lymphs (auto) 0.65 L Nucleated RBC % 0 Differential Comment SCANNED PT 14.9 INR 1.2 APTT 26.6 Sodium Potassium Chloride Carbon Dioxide Anion Gap BUN Creatinine Estim Creat Clear Calc Est GFR (MDRD) Af Amer Est GFR (MDRD) Non-Af BUN/Creatinine Ratio Glucose Hemoglobin A1c Lactic Acid Calcium Magnesium Total Bilirubin Direct Bilirubin AST ALT Alkaline Phosphatase Troponin I Total Protein Albumin Globulin Albumin/Globulin Ratio Triglycerides Cholesterol LDL Cholesterol VLDL Cholesterol HDL Cholesterol Urine Color Urine Clarity Urine pH Ur Specific [place] Urine Protein Urine Glucose (UA) Urine Ketones Urine Occult Blood Urine Nitrite Urine Bilirubin Urine Urobilinogen Ur Leukocyte Esterase Urine RBC Urine WBC Ur Squamous Epith Cells Urine Bacteria Urine Mucus COVID-19 (MIKE) POC Glucose 79 08/15/20 08/15/20 08/15/20 13:45 13:45 14:00 WBC RBC Hgb Hct MCV MCH MCHC RDW Std Deviation RDW Coeff of Nely Plt Count MPV Immature Gran % (Auto) Neut % (Auto) Lymph % (Auto) Franklin % (Auto) Eos % (Auto) Baso % (Auto) Absolute Neuts (auto) Absolute Lymphs (auto) Nucleated RBC % Differential Comment PT INR APTT Sodium 146 H Potassium 3.1 L Chloride 117 H Carbon Dioxide 20.0 L Anion Gap 9 BUN 38 H Creatinine 1.84 H Estim Creat Clear Calc 27.01 Est GFR (MDRD) Af Amer 35 L Est GFR (MDRD) Non-Af 29 L BUN/Creatinine Ratio 20.7 H Glucose 68 L Hemoglobin A1c Lactic Acid 3.9 H* Calcium 9.3 Magnesium Total Bilirubin Direct Bilirubin AST ALT Alkaline Phosphatase Troponin I 6.670 H* Total Protein Albumin Globulin Albumin/Globulin Ratio Triglycerides Cholesterol LDL Cholesterol VLDL Cholesterol HDL Cholesterol Urine Color Yellow Urine Clarity Sl. Cloudy Urine pH 5.0 Ur Specific [place] 1.020 Urine Protein 30 H Urine Glucose (UA) Normal Urine Ketones 5 H Urine Occult Blood 50 H Urine Nitrite Negative Urine Bilirubin Negative Urine Urobilinogen Normal Ur Leukocyte Esterase 500 H Urine RBC 0-5 SEEN Urine WBC 50-100 SEEN Ur Squamous Epith Cells 5-10 SEEN Urine Bacteria 3+ Urine Mucus 0 SEEN COVID-19 (MIKE) POC Glucose 08/15/20 08/15/20 08/15/20 15:42 16:28 16:28 WBC RBC Hgb Hct MCV MCH MCHC RDW Std Deviation RDW Coeff of Nely Plt Count MPV Immature Gran % (Auto) Neut % (Auto) Lymph % (Auto) Franklin % (Auto) Eos % (Auto) Baso % (Auto) Absolute Neuts (auto) Absolute Lymphs (auto) Nucleated RBC % Differential Comment PT INR APTT Sodium Potassium Chloride Carbon Dioxide Anion Gap BUN Creatinine Estim Creat Clear Calc Est GFR (MDRD) Af Amer Est GFR (MDRD) Non-Af BUN/Creatinine Ratio Glucose Hemoglobin A1c Lactic Acid 3.5 H* Calcium Magnesium 1.9 Total Bilirubin Direct Bilirubin AST ALT Alkaline Phosphatase Troponin I 8.570 H* Total Protein Albumin Globulin Albumin/Globulin Ratio Triglycerides Cholesterol LDL Cholesterol VLDL Cholesterol HDL Cholesterol Urine Color Urine Clarity Urine pH Ur Specific [place] Urine Protein Urine Glucose (UA) Urine Ketones Urine Occult Blood Urine Nitrite Urine Bilirubin Urine Urobilinogen Ur Leukocyte Esterase Urine RBC Urine WBC Ur Squamous Epith Cells Urine Bacteria Urine Mucus COVID-19 (MIKE) Not Detected POC Glucose 08/15/20 08/15/20 08/15/20 16:28 16:28 16:28 WBC RBC Hgb Hct MCV MCH MCHC RDW Std Deviation RDW Coeff of Nely Plt Count MPV Immature Gran % (Auto) Neut % (Auto) Lymph % (Auto) Franklin % (Auto) Eos % (Auto) Baso % (Auto) Absolute Neuts (auto) Absolute Lymphs (auto) Nucleated RBC % Differential Comment PT INR APTT Sodium Potassium Chloride Carbon Dioxide Anion Gap BUN Creatinine Estim Creat Clear Calc Est GFR (MDRD) Af Amer Est GFR (MDRD) Non-Af BUN/Creatinine Ratio Glucose Hemoglobin A1c 7.7 H Lactic Acid Calcium Magnesium 1.8 Total Bilirubin 0.70 Direct Bilirubin 0.54 H AST 488 H ALT 326 H Alkaline Phosphatase 233 H Troponin I Total Protein 7.0 Albumin 2.4 L Globulin 4.6 H Albumin/Globulin Ratio Triglycerides Cholesterol LDL Cholesterol VLDL Cholesterol HDL Cholesterol Urine Color Urine Clarity Urine pH Ur Specific [place] Urine Protein Urine Glucose (UA) Urine Ketones Urine Occult Blood Urine Nitrite Urine Bilirubin Urine Urobilinogen Ur Leukocyte Esterase Urine RBC Urine WBC Ur Squamous Epith Cells Urine Bacteria Urine Mucus COVID-19 (MIKE) POC Glucose 08/15/20 08/15/20 08/15/20 16:51 18:00 20:15 WBC RBC Hgb Hct MCV MCH MCHC RDW Std Deviation RDW Coeff of Nely Plt Count MPV Immature Gran % (Auto) Neut % (Auto) Lymph % (Auto) Franklin % (Auto) Eos % (Auto) Baso % (Auto) Absolute Neuts (auto) Absolute Lymphs (auto) Nucleated RBC % Differential Comment PT INR APTT Sodium Potassium Chloride Carbon Dioxide Anion Gap BUN Creatinine Estim Creat Clear Calc Est GFR (MDRD) Af Amer Est GFR (MDRD) Non-Af BUN/Creatinine Ratio Glucose Hemoglobin A1c Lactic Acid 0.9 Calcium Magnesium Total Bilirubin Direct Bilirubin AST ALT Alkaline Phosphatase Troponin I 7.450 H* Total Protein Albumin Globulin Albumin/Globulin Ratio Triglycerides Cholesterol LDL Cholesterol VLDL Cholesterol HDL Cholesterol Urine Color Urine Clarity Urine pH Ur Specific [place] Urine Protein Urine Glucose (UA) Urine Ketones Urine Occult Blood Urine Nitrite Urine Bilirubin Urine Urobilinogen Ur Leukocyte Esterase Urine RBC Urine WBC Ur Squamous Epith Cells Urine Bacteria Urine Mucus COVID-19 (MIKE) POC Glucose 100 08/15/20 08/15/20 08/15/20 20:15 20:15 21:13 WBC RBC Hgb Hct MCV MCH MCHC RDW Std Deviation RDW Coeff of Nely Plt Count MPV Immature Gran % (Auto) Neut % (Auto) Lymph % (Auto) Franklin % (Auto) Eos % (Auto) Baso % (Auto) Absolute Neuts (auto) Absolute Lymphs (auto) Nucleated RBC % Differential Comment PT INR APTT > 250.0 H* Sodium Potassium Chloride Carbon Dioxide Anion Gap BUN Creatinine Estim Creat Clear Calc Est GFR (MDRD) Af Amer Est GFR (MDRD) Non-Af BUN/Creatinine Ratio Glucose Hemoglobin A1c Lactic Acid 3.6 H* Calcium Magnesium Total Bilirubin Direct Bilirubin AST ALT Alkaline Phosphatase Troponin I Total Protein Albumin Globulin Albumin/Globulin Ratio Triglycerides Cholesterol LDL Cholesterol VLDL Cholesterol HDL Cholesterol Urine Color Urine Clarity Urine pH Ur Specific [place] Urine Protein Urine Glucose (UA) Urine Ketones Urine Occult Blood Urine Nitrite Urine Bilirubin Urine Urobilinogen Ur Leukocyte Esterase Urine RBC Urine WBC Ur Squamous Epith Cells Urine Bacteria Urine Mucus COVID-19 (MIKE) POC Glucose 156 H 08/16/20 08/16/20 08/16/20 03:55 05:20 05:20 WBC 36.6 H* RBC 4.37 Hgb 11.4 L Hct 39.8 MCV 91.1 MCH 26.1 L MCHC 28.6 L RDW Std Deviation 49.9 H RDW Coeff of Nely 14.8 H Plt Count 173 MPV 11.4 Immature Gran % (Auto) Neut % (Auto) Not Reportable Lymph % (Auto) Franklin % (Auto) Eos % (Auto) Baso % (Auto) Absolute Neuts (auto) Pending Absolute Lymphs (auto) Nucleated RBC % Differential Comment PT INR APTT Sodium 142 Potassium 4.0 Chloride 113 H Carbon Dioxide 18.0 L Anion Gap 11 BUN 44 H Creatinine 2.30 H Estim Creat Clear Calc 21.61 Est GFR (MDRD) Af Amer 27 L Est GFR (MDRD) Non-Af 22 L BUN/Creatinine Ratio 19.1 Glucose 192 H Hemoglobin A1c Lactic Acid Calcium 8.6 Magnesium Total Bilirubin 0.40 Direct Bilirubin AST 257 H ALT 272 H Alkaline Phosphatase 208 H Troponin I Total Protein 7.5 Albumin 2.6 L Globulin 4.9 H Albumin/Globulin Ratio 0.5 L Triglycerides 55 Cholesterol 104 LDL Cholesterol 27 VLDL Cholesterol 11 HDL Cholesterol 66 Urine Color Urine Clarity Urine pH Ur Specific [place] Urine Protein Urine Glucose (UA) Urine Ketones Urine Occult Blood Urine Nitrite Urine Bilirubin Urine Urobilinogen Ur Leukocyte Esterase Urine RBC Urine WBC Ur Squamous Epith Cells Urine Bacteria Urine Mucus COVID-19 (MIKE) POC Glucose 205 H 08/16/20 05:20 WBC RBC Hgb Hct MCV MCH MCHC RDW Std Deviation RDW Coeff of Nely Plt Count MPV Immature Gran % (Auto) Neut % (Auto) Lymph % (Auto) Franklin % (Auto) Eos % (Auto) Baso % (Auto) Absolute Neuts (auto) Absolute Lymphs (auto) Nucleated RBC % Differential Comment PT INR APTT 223.3 H* Sodium Potassium Chloride Carbon Dioxide Anion Gap BUN Creatinine Estim Creat Clear Calc Est GFR (MDRD) Af Amer Est GFR (MDRD) Non-Af BUN/Creatinine Ratio Glucose Hemoglobin A1c Lactic Acid Calcium Magnesium Total Bilirubin Direct Bilirubin AST ALT Alkaline Phosphatase Troponin I Total Protein Albumin Globulin Albumin/Globulin Ratio Triglycerides Cholesterol LDL Cholesterol VLDL Cholesterol HDL Cholesterol Urine Color Urine Clarity Urine pH Ur Specific [place] Urine Protein Urine Glucose (UA) Urine Ketones Urine Occult Blood Urine Nitrite Urine Bilirubin Urine Urobilinogen Ur Leukocyte Esterase Urine RBC Urine WBC Ur Squamous Epith Cells Urine Bacteria Urine Mucus COVID-19 (MIKE) POC Glucose Clinical Impression(s) from Imaging Studies Brain CT 08/15/20 12:57 IMPRESSION: Chronic involutional changes of the brain. Small old lacunar infarcts in the basal ganglia bilaterally as well as the left thalamus. N.B. : The above information has been verbally conveyed by Eyal Campoverde to JULIANO West on 08/15/2020 13:20:33 (ET). Electronically Signed: Eyal Nirali, at 13:21 EDT , Service support , ADDENDUM: 08/15/20 1328 IMPRESSION: Chronic involutional changes of the brain. Small old lacunar infarcts in the basal ganglia bilaterally as well as the left thalamus. N.B. : The above information has been verbally conveyed by Eyal Campoverde to JULIANO West on 08/15/2020 13:20:33 (ET). Electronically Signed: Eyal Nirali, at 13:21 EDT , Service support , Chest X-Ray 08/15/20 14:40 IMPRESSION: No acute abnormality is seen. Electronically Signed: Eyal Nirali, at 14:55 EDT , Service support , Current Medications Acetaminophen (Acetaminophen 325 Mg Tablet) 650 mg PO Q6H PRN PRN PRN Reason: Pain Score 1-10/Temp > 100.7 F Last Admin: 08/15/20 19:58 Dose: 650 mg Documented by: Albuterol Sulfate (Albuterol 2.5 Mg/3 Ml Vial.Neb.) 2.5 mg INHALATION Q2H PRN PRN PRN Reason: Dyspnea, wheezing Aspirin (Aspirin E.C. 81 Mg Tablet) 81 mg PO DAILY@0800 [facility] Atorvastatin Calcium (Atorvastatin Calcium 40 Mg Tablet) 40 mg PO QHS [facility] Last Admin: 08/15/20 21:16 Dose: 40 mg Documented by: Heparin Sodium (Porcine) (Heparin Injection (Vial) 5,000 Unit/Ml Vial) 0 unit IV UD PRN; Protocol PRN Reason: dose adjustment Heparin Sodium/Dextrose () 25,000 units in 250 mls @ 15 mls/hr IV .[id number] [facility]; Protocol Last Titration: 08/16/20 05:00 Dose: 1,200 units/hr, 12 mls/hr Documented by: Ceftriaxone Sodium (Rocephin) 1 gm in 50 mls @ 100 mls/hr IV Q24 [facility] Stop: 08/23/20 10:01 Dextrose/Sodium Chloride (Dextrose 5%/0.9% Nacl) 1,000 mls @ 125 mls/hr IV .Q8H [facility] Last Admin: 08/16/20 01:43 Dose: 125 mls/hr Documented by: Insulin Glargine (Insulin Glargine 100 Units/Ml Pen) 40 units SC QHS [facility] Last Admin: 08/15/20 21:15 Dose: 40 u Documented by: Insulin Human Lispro (Insulin Lispro 100 Unit/Ml Insuln.Pen) 0 unit SC ACHS NICOLE; Protocol Last Admin: 08/15/20 21:14 Dose: 1 units Documented by: Iopamidol (Contrast Allergy Safety Check) 0 ml IV X1 [facility] Last Admin: 08/15/20 20:49 Dose: Not Given Documented by: Pantoprazole Sodium (Pantoprazole Sodium 20 Mg Tablet) 20 mg PO DAILY [facility] Sodium Chloride (0.9% Saline Lock 10 Ml Syringe) 10 - 40 ml IV UD PRN PRN Reason: SALINE FLUSH Assessment/Plan Active and Suspected Problems UTI (urinary tract infection) (Acute) Severe sepsis (Acute) NSTEMI (non-ST elevated myocardial infarction) (Acute) RECOMMENDATIONS: 1. Give additional fluid bolus. 2. Continue empiric antimicrobials, pending infectious work-up. 3. Trend troponins 4. Obtain liver and renal ultrasound. 5. Cardiology consultation is pending. IMPRESSIONS: 1. Severe sepsis with concern for urinary tract source of infection Concern for primary urinary tract source of infection with secondary hematogenous spread. Plan to continue current supportive measures. Recommend administering 1 L of additional fluid to meet sepsis protocol. The patient will be started on vasopressor support, if clinically indicated. She will remain on broad-spectrum antimicrobials as ordered, pending further infectious work-up. 2. Encephalopathy Likely metabolic in etiology and related to underlying infectious process. As noted above, we will continue current supportive measures and treat underlying infection as indicated. 3. Non-ST segment elevation [place] Suspect likely secondary to demand ischemia in the setting of #1. Cardiology has been consulted to evaluate the patient. Echocardiogram is pending. 4. Acute kidney injury Likely prerenal in etiology. The patient is receiving volume resuscitation and will be started on vasopressor support to maintain hemodynamic stability, if clinically indicated. Continue to monitor urine output for now. No current indication for renal replacement therapy. 5. Elevated transaminases Unclear chronicity and etiology. Liver ultrasound is pending. 6. Hypertension/hyperlipidemia/diabetes mellitus/GERD/history of CVA Complicates care, management, recovery and prognosis. Continue to hold antihypertensives. This note was generated with NPC III dictation software. It may contain incorrect words, spelling, and punctuation that were not noted in checking the note before signing. Inpatient E&M: 10256 Init Hosp L3
--- NOTE | 2020-08-16 06:38 | US_ITS ---
STUDY: ABDOMINAL ULTRASOUND - RIGHT UPPER QUADRANT REASON FOR VISIT: Female, 69 years old TRANSAMINITIS, SEVERE SEPSIS, SEGUN TECHNIQUE: Ultrasound evaluation of the right upper quadrant was performed with real-time and static shafer-scale imaging. TECHNICAL QUALITY: Adequate. COMPARISON: None. FINDINGS: Liver: The liver measures 14.8 cm. There is normal echogenicity of the liver. The bile ducts are within normal limits. There is hepatic color flow. The direction of portal flow is hepatopetal. There is no demonstrated mass lesion. Gallbladder: Normal distended gallbladder. The gallbladder wall measures 2 mm. There is a negative sonographic Milligan''s sign. There is no pericholecystic fluid. There are no gallstones. Common Bile Duct (C.B.D.): The common bile duct measures 6 mm. Pancreas: Normal size of the head, body and tail of the pancreas. There is normal echogenicity of the pancreas. There is no demonstrated pancreatic mass or cyst. Right Kidney: Normal size of the right kidney. The right kidney measures 10.6 cm. Normal renal cortex. The right cortex measures 1.5 cm. There is no demonstrated renal mass or cyst. There is no right hydronephrosis. IMPRESSION: Normal right upper quadrant ultrasound examination. Electronically Signed: Klever Perdue MD at 9:28 EDT Tel , Service support , STUDY: RENAL ULTRASOUND - COMPLETE REASON FOR EXAM: Female, 69 years old. TRANSAMINITIS, SEVERE SEPSIS, SEGUN TECHNIQUE: Ultrasound evaluation of the kidneys was performed with real-time and static romero-scale imaging. COMPARISON: None. FINDINGS: RIGHT KIDNEY: Normal location of the right kidney, which is normal in size. The right kidney measures 10.6 cm. There is a normal cortex of the right kidney. The renal cortex measures 1.5 cm. There is no right renal mass or cyst. There are no right renal calculi. There is no right hydronephrosis. DISTAL RIGHT URETER: There is non-visualization of the distal right ureter. There is no demonstrated right ureterovesical junction calculus. There is a visualized right ureteral jet. LEFT KIDNEY: Normal location of the left kidney, which is normal in size. The left kidney measures 10.7 cm. There is a normal cortex of the left kidney. The renal cortex measures 2.1 cm. There is no left renal mass or cyst. There are no left renal calculi. There is no left hydronephrosis. DISTAL LEFT URETER: There is non-visualization of the distal left ureter. There is no demonstrated left ureterovesical junction calculus. There is a visualized left ureteral jet. BLADDER: Not visualized due to Fierro catheter.. US/Liver IMPRESSION: Normal ultrasound of the kidneys and urinary bladder. Electronically Signed: Klever Perdue MD at 9:29 EDT Tel , Service support ,
[2020-08-16 06:55] LABS: Lymphocyte 11 % (19-41); Monocyte 3 % (0-10); Neutrophil-Band 16 % (0-5); Neutrophil-Segmented 70 % (47-70); Platelet Estimate ADEQUATE (ADEQ); Red Cell Morphology NORM C+C NORMAL (NORM C&C); Total Cells Counted 100 (MANUAL DIFF)
[2020-08-16 06:56] LABS: Absolute Lymphocyte Count 4.02 X10^3/uL (0.83-4.51); Absolute Neutrophil Count 31.5 X10^3/uL (2.0-7.7); Lymphocyte # 4.02 X10^3/ul (4.0); Neutrophil # 31.48 X10^3/uL (2.7-7.7)
[2020-08-16 07:01] LABS: Toxic Granulation 3+; Vacuolated Cells 1+
[2020-08-16] MEDS: Dextrose 5%-Lactated Ringers 1,000 ML 125 ML IV ×2 (08:05→22:00)
[2020-08-16] MEDS: Lactated Ringers 1,000 ML 999 ML IV (08:15)
[2020-08-16 08:16] LABS: Bedside Glucose 168 mg/dL (70-110)
--- NOTE | 2020-08-16 09:09 | PN.CARD_ITS ---
Subjectve: The patient is awake and alert. She states she feels somewhat better today. Objective: Vital Signs Temp Pulse Resp BP Pulse Ox 98.0 F 118 H 26 H 89/57 L 99 08/16/20 03:00 08/16/20 06:00 08/16/20 06:00 08/16/20 06:00 08/16/20 08:00 Oxygen Delivery Method Room Air Weight: 229 lb 11.2 oz Body Mass Index (BMI) 35.7 Finger Stick Blood Glucose 123 Intake and Output for Last 24 Hours 08/14/20 08/15/20 08/16/20 23:59 23:59 23:59 Intake Total 2405.72 / 2414.72 / Output Total 0 / 0 Balance 2405.72 / 2414.72 General: Awake, Alert, Cooperative, No Acute Distress, Obese HEENT: Atraumatic, Normocephalic, PERRL, EOMI, Sclera Non Icteric Neck: Supple, Good ROM, No JVD Lungs: Clear to auscultation Cardiovascular: Regular Rhythm, Normal S1, Normal S2 Abdomen: Bowel Sounds Present, Soft Extremities: No edema Psych/Mental Status: Flat Affect 08/15/20 13:45: WBC 13.1 H, RBC 4.23, Hgb 11.0 L, Hct 37.1, MCV 87.7, MCH 26.0 L , MCHC 29.6 L, Plt Count 176, MPV 10.5, Immature Gran % (Auto) 0.800, Neut % (Auto) 92.4 H, Lymph % (Auto) 5.0 L, [place] % (Auto) 1.6, Eos % (Auto) 0.0, Baso % (Auto) 0.2, Absolute Neuts (auto) 12.1 H, Nucleated RBC % 0 08/15/20 13:45: PT 14.9, INR 1.2, APTT 26.6 08/15/20 13:45: Sodium 146 H, Potassium 3.1 L, Chloride 117 H, Carbon Dioxide 20.0 L, Anion Gap 9, BUN 38 H, Creatinine 1.84 H, Est GFR (MDRD) Af Amer 35 L, Est GFR (MDRD) Non-Af 29 L, BUN/Creatinine Ratio 20.7 H, Glucose 68 L, Calcium 9.3, Troponin I 6.670 H* 08/15/20 13:45: Lactic Acid 3.9 H* 08/15/20 14:00: Urine Color Yellow, Urine Clarity Sl. Cloudy, Urine pH 5.0, Ur Specific [place] 1.020, Urine Protein 30 H, Urine Glucose (UA) Normal, Urine Ketones 5 H, Urine Occult Blood 50 H, Urine Nitrite Negative, Urine Bilirubin Negative, Urine Urobilinogen Normal, Ur Leukocyte Esterase 500 H, Urine RBC 0-5 SEEN, Urine WBC 50-100 SEEN 08/15/20 16:28: Magnesium 1.9, Troponin I 8.570 H* 08/15/20 16:28: Lactic Acid 3.5 H* 08/15/20 16:28: Total Bilirubin 0.70, Direct Bilirubin 0.54 H 08/15/20 16:28: Hemoglobin A1c 7.7 H 08/15/20 16:28: Magnesium 1.8 08/15/20 18:00: Lactic Acid 0.9 08/15/20 20:15: Troponin I 7.450 H* 08/15/20 20:15: APTT > 250.0 H* 08/15/20 20:15: Lactic Acid 3.6 H* 08/16/20 05:20: WBC 36.6 H*, RBC 4.37, Hgb 11.4 L, Hct 39.8, MCV 91.1, MCH 26.1 L, MCHC 28.6 L, Plt Count 173, MPV 11.4, Neut % (Auto) Not Reportable, Absolute Neuts (auto) 31.5 H, Total Counted 100, Neutrophils % (Manual) 70, Band Neutrophils % 16 H, Lymphocytes % (Manual) 11 L, Monocytes % (Manual) 3 08/16/20 05:20: Sodium 142, Potassium 4.0, Chloride 113 H, Carbon Dioxide 18.0 L , Anion Gap 11, BUN 44 H, Creatinine 2.30 H, Est GFR (MDRD) Af Amer 27 L, Est GFR (MDRD) Non-Af 22 L, BUN/Creatinine Ratio 19.1, Glucose 192 H, Calcium 8.6, Total Bilirubin 0.40, Triglycerides 55, Cholesterol 104, LDL Cholesterol 27, VLDL Cholesterol 11, HDL Cholesterol 66 08/16/20 05:20: APTT 223.3 H* Rhythm: Sinus rhythm/sinus tachycardia Medical Necessity - Tobacco Use Smoking Status: Unknown if ever smoked Tobacco Use: - - Unknown due to patient confusion Assessment/Plan 1. Non-ST segment elevation [place] The patient does have abnormal cardiac enzymes. This is being reported in the setting of urosepsis. Thus it is unclear whether this is a type II event secondary to supply demand mismatch versus undiagnosed CAD with a type I event. The present time she appears to be without any acute symptoms. Her ECG demonstrates no acute changes. She will be monitored. Her troponin I levels appear to be decreasing. Depending upon her clinical course she may eventually need further evaluation with cardiac catheterization unless otherwise contraindicated by her history of CVA or other medical conditions. 2. Hypotension She has been hypotensive. Again this is thought related to her underlying concerns of urosepsis at this time. She is receiving IV fluids. Her blood pressure is improving. She will continue to be followed. 3. Hypertension She apparently has a history of hypertension has been on antihypertensive medications. They will be on hold at this time pending further evaluation care. 4. Hyperlipidemia She will continue risk factor evaluation care as deemed appropriate. 5. CVA She does have a history of a remote CVA. Apparently, after her evaluation today, there was no new acute concerns. Thus she is going to continue evaluation care per internal medicine. This note was generated using a voice recognition system and there may be incorrect words, spelling or punctuation that were not noted when reviewing the office note prior to saving.
--- NOTE | 2020-08-16 10:01 | PCM.PN.HOSP ---
Patient Problems: Active and Suspected Problems UTI (urinary tract infection) (Acute) Severe sepsis (Acute) NSTEMI (non-ST elevated myocardial infarction) (Acute) Subjective: Patient seen and examined. She was admitted with a complaint of altered mental status. On admission, she was found to be afebrile but tachycardic and tachypneic and blood pressures were mildly low. White cell count was elevated at 13,000 and chemistry showed potassium of 3.1 with sodium of 146 and creatinine of 1.84. Glucose was 68. Lactic acid was also elevated to 3.9 and initial troponin was 6.67. UA was positive for UTI and coronavirus test was negative. Chest x-ray showed no acute cardiopulmonary process. She was admitted and managed for non-STEMI as well as sepsis due to UTI. 2D echo done showed EF of 65% with right ventricular systolic pressure of 36 mmHg. She is on IV ceftriaxone and chicken sexer on board. Patient seen this morning. She was resting calmly in bed. She had no complaints. She denied any shortness of breath, chest pain, fever or chills, nausea or vomiting. Review of symptoms otherwise negative. Blood pressure remains on the low side at 89/57 this morning and she remains tachycardic and tachypneic. And and has trended upwards to 2.3. BC shows WBC of 36.6 and hemoglobin of 11.4 today. Platelets are 173. Opponents peaked at 7.45. Vitals/I&O's: Vital Signs Temp Pulse Resp BP Pulse Ox 98.0 F 118 H 26 H 89/57 L 99 08/16/20 03:00 08/16/20 06:00 08/16/20 06:00 08/16/20 06:00 08/16/20 08:00 Oxygen Delivery Method Room Air Weight: 229 lb 11.2 oz Body Mass Index (BMI) 35.7 Finger Stick Blood Glucose 123 Intake and Output for Last 24 Hours 08/14/20 08/15/20 08/16/20 23:59 23:59 23:59 Intake Total 2405.72 / 2414.72 Output Total 0 / 0 Balance 2405.72 / 2414.72 General: Alert, Cooperative, No apparent distress, Confused HEENT: Atraumatic, PERRLA, EOMI, Normocephalic Oral: Dry Mucosa Neck: Supple, No JVD, Negative Carotid Bruits Lungs: Clear to auscultation, Normal air movement, No rhonchi, No wheeze, No rales, Tachypneic Cardiovascular: Normal S1, Normal S2, No murmurs, Tachycardic Abdomen: Bowel Sounds Present, Soft, Non Tender, Non-Distended, No Hepato-splenomegaly Extremities: No clubbing, No cyanosis, Capillary Refill Less than 3 Seconds, - - bilateral 1+ pitting edema Skin: No rashes, No breakdown Musculoskeletal: No Tenderness to Palpation of Joints or Extremities Lymphatic: No Cervical, Supraclavicular, or Inguinal Adenopathy Neurological: Cranial nerves II-XII grossly intact Psych/Mental Status: Normal Affect, Appropriate Laboratory Results 08/15/20 13:10: POC Glucose 79 08/15/20 13:45: WBC 13.1 H, RBC 4.23, Hgb 11.0 L, Hct 37.1, MCV 87.7, MCH 26.0 L, MCHC 29.6 L, RDW Std Deviation 46.6 H, RDW Coeff of [place] 14.6, Plt Count 176, MPV 10.5, Immature Gran % (Auto) 0.800, Neut % (Auto) 92.4 H, Lymph % (Auto) 5.0 L, [place] % (Auto) 1.6, Eos % (Auto) 0.0, Baso % (Auto) 0.2, Absolute Neuts (auto) 12.1 H, Absolute Lymphs (auto) 0.65 L, Nucleated RBC % 0, Differential Comment SCANNED 08/15/20 13:45: PT 14.9, INR 1.2, APTT 26.6 08/15/20 13:45: Sodium 146 H, Potassium 3.1 L, Chloride 117 H, Carbon Dioxide 20.0 L, Anion Gap 9, BUN 38 H, Creatinine 1.84 H, Estim Creat Clear Calc 27.01, Est GFR (MDRD) Af Amer 35 L, Est GFR (MDRD) Non-Af 29 L, BUN/Creatinine Ratio 20.7 H, Glucose 68 L, Calcium 9.3, Troponin I 6.670 H* 08/15/20 13:45: Lactic Acid 3.9 H* 08/15/20 14:00: Urine Color Yellow, Urine Clarity Sl. Cloudy, Urine pH 5.0, Ur Specific [place] 1.020, Urine Protein 30 H, Urine Glucose (UA) Normal, Urine Ketones 5 H, Urine Occult Blood 50 H, Urine Nitrite Negative, Urine Bilirubin Negative, Urine Urobilinogen Normal, Ur Leukocyte Esterase 500 H, Urine RBC 0-5 SEEN, Urine WBC 50-100 SEEN, Ur Squamous Epith Cells 5-10 SEEN, Urine Bacteria 3+, Urine Mucus 0 SEEN 08/15/20 15:42: COVID-19 (MIKE) Not Detected 08/15/20 16:28: Magnesium 1.9, Troponin I 8.570 H* 08/15/20 16:28: Lactic Acid 3.5 H* 08/15/20 16:28: Total Bilirubin 0.70, Direct Bilirubin 0.54 H, AST 488 H, ALT 326 H, Alkaline Phosphatase 233 H, Total Protein 7.0, Albumin 2.4 L, Globulin 4.6 H 08/15/20 16:28: Hemoglobin A1c 7.7 H 08/15/20 16:28: Magnesium 1.8 08/15/20 16:51: POC Glucose 100 08/15/20 18:00: Lactic Acid 0.9 08/15/20 20:15: Troponin I 7.450 H* 08/15/20 20:15: APTT > 250.0 H* 08/15/20 20:15: Lactic Acid 3.6 H* 08/15/20 21:13: POC Glucose 156 H 08/16/20 03:55: POC Glucose 205 H 08/16/20 05:20: WBC 36.6 H*, RBC 4.37, Hgb 11.4 L, Hct 39.8, MCV 91.1, MCH 26.1 L, MCHC 28.6 L, RDW Std Deviation 49.9 H, RDW Coeff of [place] 14.8 H, Plt Count 173, MPV 11.4, Neut % (Auto) Not Reportable, Absolute Neuts (auto) 31.5 H, Absolute Lymphs (auto) 4.02, Total Counted 100, Neutrophils % (Manual) 70, Band Neutrophils % 16 H, Lymphocytes % (Manual) 11 L, Monocytes % (Manual) 3, Diff Path Review May foll, Toxic Granulation 3+, Toxic Vacuolation 1+, Platelet Estimate ADEQUATE, RBC Morphology NORM C+C 08/16/20 05:20: Sodium 142, Potassium 4.0, Chloride 113 H, Carbon Dioxide 18.0 L, Anion Gap 11, BUN 44 H, Creatinine 2.30 H, Estim Creat Clear Calc 21.61, Est GFR (MDRD) Af Amer 27 L, Est GFR (MDRD) Non-Af 22 L, BUN/Creatinine Ratio 19.1, Glucose 192 H, Calcium 8.6, Total Bilirubin 0.40, AST 257 H, ALT 272 H, Alkaline Phosphatase 208 H, Total Protein 7.5, Albumin 2.6 L, Globulin 4.9 H, Albumin/Globulin Ratio 0.5 L, Triglycerides 55, Cholesterol 104, LDL Cholesterol 27, VLDL Cholesterol 11, HDL Cholesterol 66 08/16/20 05:20: APTT 223.3 H* 08/16/20 08:03: POC Glucose 168 H Diagnostic Data Brain CT 08/15/20 12:57 IMPRESSION: Chronic involutional changes of the brain. Small old lacunar infarcts in the basal ganglia bilaterally as well as the left thalamus. N.B. : The above information has been verbally conveyed by Eyal Campoverde to JULIANO West on 08/15/2020 13:20:33 (ET). Electronically Signed: Eyal Campoverde, at 13:21 EDT , Service support , ADDENDUM: 08/15/20 1328 IMPRESSION: Chronic involutional changes of the brain. Small old lacunar infarcts in the basal ganglia bilaterally as well as the left thalamus. N.B. : The above information has been verbally conveyed by Eyal Campoverde to JULIANO West on 08/15/2020 13:20:33 (ET). Electronically Signed: Eyal Campoverde, at 13:21 EDT , Service support , Chest X-Ray 08/15/20 14:40 IMPRESSION: No acute abnormality is seen. Electronically Signed: Eyal Campoverde at 14:55 EDT , Service support , Liver Ultrasound 08/16/20 06:38 IMPRESSION: Normal ultrasound of the kidneys and urinary bladder. Electronically Signed: Klever Perdue MD at 9:29 EDT Tel , Service support , Current Medications Acetaminophen (Acetaminophen 325 Mg Tablet) 650 mg PO Q6H PRN PRN PRN Reason: Pain Score 1-10/Temp > 100.7 F Last Admin: 08/15/20 19:58 Dose: 650 mg Documented by: Albuterol Sulfate (Albuterol 2.5 Mg/3 Ml Vial.Neb.) 2.5 mg INHALATION Q2H PRN PRN PRN Reason: Dyspnea, wheezing Aspirin (Aspirin E.C. 81 Mg Tablet) 81 mg PO DAILY@0800 [facility] Atorvastatin Calcium (Atorvastatin Calcium 40 Mg Tablet) 40 mg PO QHS [facility] Last Admin: 08/15/20 21:16 Dose: 40 mg Documented by: Clopidogrel Bisulfate (Clopidogrel Bisulfate 75 Mg Tablet) 75 mg PO DAILY [facility] Heparin Sodium (Porcine) (Heparin Injection (Vial) 5,000 Unit/Ml Vial) 0 unit IV UD PRN; Protocol PRN Reason: dose adjustment Heparin Sodium/Dextrose () 25,000 units in 250 mls @ 15 mls/hr IV .[id number] [facility]; Protocol Last Titration: 08/16/20 07:58 Dose: 900 units/hr, 9 mls/hr Documented by: Ceftriaxone Sodium (Rocephin) 1 gm in 50 mls @ 100 mls/hr IV Q24 [facility] Stop: 08/23/20 10:01 Dextrose/Lactated Ringer's () 1,000 mls @ 125 mls/hr IV .Q8H [facility] Last Admin: 08/16/20 08:05 Dose: 125 mls/hr Documented by: Insulin Glargine (Insulin Glargine 100 Units/Ml Pen) 40 units SC QHS [facility] Last Admin: 08/15/20 21:15 Dose: 40 u Documented by: Insulin Human Lispro (Insulin Lispro 100 Unit/Ml Insuln.Pen) 0 unit SC ACHS [facility]; Protocol Last Admin: 08/15/20 21:14 Dose: 1 units Documented by: Iopamidol (Contrast Allergy Safety Check) 0 ml IV X1 NICOLE Last Admin: 08/15/20 20:49 Dose: Not Given Documented by: Pantoprazole Sodium (Pantoprazole Sodium 20 Mg Tablet) 20 mg PO DAILY NICOLE Sodium Chloride (0.9% Saline Lock 10 Ml Syringe) 10 - 40 ml IV UD PRN PRN Reason: SALINE FLUSH STROKE Vital Signs/Narrative: Vital Signs Pulse Ox 08/16/20 08:00 99 Medical Necessity - Tobacco Use Smoking Status: Unknown if ever smoked Tobacco Use: - - Unknown due to patient confusion Assessment/Plan All Active Problems UTI (urinary tract infection) (Acute) Severe sepsis (Acute) NSTEMI (non-ST elevated myocardial infarction) (Acute) # Acute metabolic encephalopathy due to severe sepsis nad nonstemi Patient is alert today. She does have baseline confusion. Urine catheter is very dirty. UA showed evidence of UTI with 3+ bacteria. WBC has trended up to 36 today from 13 on admission. On IV ceftriaxone. Urine and blood cultures pending. Been hydrated with IV fluids. #Severe sepsis due to UTI: As above. #UTI: As above #Non-STEMI Troponin peaked at 7.4. Was 6.7 on admission. Cardiology on board. On heparin drip. Also on Plavix and aspirin. 2D echo showed EF of 65%. On high intensity statin. #Type 2 diabetes mellitus: Was hypoglycemic on admission. Hold Lantus 40 units nightly. Insulin sliding scale. Accu-Cheks AC at bedtime. #Hypokalemia: Resolved. #SEGUN: Creatinine was 1.84 on admission and is now up to 2.3. Will check urine electrolytes to check for urea and gets renal ultrasound. If creatinine trends higher, will consider consulting nephrology. #History of CVA: On aspirin and statin. BP meds were held on account of hypotension. #Chronic iron deficiency anemia: Hemoglobin is 11. Stable. On oral iron supplementation. DVT prophylaxis: On heparin drip. Inpatient E&M: [id number] [facility] L3
[2020-08-16] MEDS: Ceftriaxone 1 GM/50 ML BAG IV (12:13)
[2020-08-16] MEDS: Aspirin E.C. 81 MG Tablet PO (12:28)
[2020-08-16] MEDS: Pantoprazole Sodium 20 MG Tablet PO (12:28)
[2020-08-16 12:35] LABS: Bedside Glucose 138 mg/dL (70-110)
--- NOTE | 2020-08-16 16:24 | CASEMGMT ---
Pt is here from [facility]. SW called [facility], confirmed pt is from there, plan is for pt to return. LENA called daughter Wes Santos, confirmed with her also plan is for pt to return to [facility] at discharge. SW faxed updates to [facility]. Pt has already tested negative for COVID. Green sheet, covid screen and transport form to be placed on chart in event pt is ready for discharge on the weekend. REUBEN Mittal
[2020-08-16 17:22] LABS: Partial Thromboplast Time 153.3 Seconds (24.1-36.2)
[2020-08-16] MEDS: HEPARIN/D5w 25,000 UNITS 25,000 UNITS/250 ML IV.SOLN. 9 UNITS IV (17:29)
[2020-08-16] MEDS: Clopidogrel Bisulfate 300 MG Tablet PO (18:02)
[2020-08-16 18:25] LABS: Bedside Glucose 66 mg/dL (70-110)
--- NOTE | 2020-08-16 18:48 | NURSING ---
education re chronic illness deferred till acute illness resolving
[2020-08-16] MEDS: Atorvastatin Calcium 40 MG Tablet PO (22:00)
[2020-08-16] MEDS: 0.9% Saline Lock 10 ML Syringe IV (22:00)
[2020-08-16 22:20] LABS: Bedside Glucose 149 mg/dL (70-110)
[2020-08-16 22:41] LABS: Bedside Glucose 166 mg/dL (70-110)
[2020-08-16] MEDS: Insulin Lispro 100 UNIT/ML INSULN.PEN SC (22:46)
[2020-08-17] VITALS (21 sets, daily range): BP systolic 80–127; BP diastolic 52–88; PULSE 64–112; RESP 13–21; TEMP 36.6–37.5; O2SAT 92–100
[2020-08-17 02:09] LABS: Partial Thromboplast Time 71.2 Seconds (24.1-36.2)
[2020-08-17 03:31] LABS: Bedside Glucose 101 mg/dL (70-110)
[2020-08-17 04:28] LABS: Basophil# 0.08 X10^3/uL; Eosinophil# 0.22 X10^3/uL; Hematocrit 28.6 % (37-47); Hemoglobin 8.7 g/dL (12.0-15.0); Mean Corp Hgb Conc 30.4 g/dL (32-36); Mean Corpuscular Hgb 26.1 pg (27.0-32.0); Mean Corpuscular Volume 85.9 fL (81-99); Mean Platelet Vol. 10.7 fl (6.2-12.0); Monocyte# 2.41 X10^3/uL; NRBC Flagged by Analyzer 0 % (0-5); POSITIVE COUNT YES; POSITIVE DIFFERENTIAL YES; POSITIVE MORPHOLOGY YES; Platelet Count 134 K/mm3 (150-450); RBC Distribution Width SD 48.1 fl (35.1-43.9); Red Blood Count 3.33 M/mm3 (4.2-5.4); White Blood Count 27.8 K/mm3 (4.4-11.0)
[2020-08-17 04:40] LABS: Anion Gap 9 (5-15); BUN 41 mg/dL (7-18); BUN/Creat Ratio 30.8 RATIO (10-20); Calcium,Total 8.2 mg/dL (8.5-10.1); Chloride 117 mmol/L (98-107); Creatinine, Serum 1.33 mg/dL (0.55-1.02); EST Glomerular Filtration Rate 42 mL/min (>60); Est Glom Filt Rate - Afr Amer 51 mL/min (>60); Estimated Creatinine Clearance 37.37 ml/min; Glucose 96 mg/dL (74-106); Potassium 3.4 mmol/L (3.5-5.1); Sodium Level 146 mmol/L (136-145)
[2020-08-17 05:08] LABS: Differential Indicated SCAN CRITERIA MET
[2020-08-17 05:13] LABS: Scan Smear per Review Criteria MANUAL DIFF
[2020-08-17 05:15] LABS: Eosinophil 1 % (0-5); Lymphocyte 14 % (19-41); Monocyte 2 % (0-10); Neutrophil-Band 2 % (0-5); Neutrophil-Segmented 81 % (47-70); Total Cells Counted 100 (MANUAL DIFF)
[2020-08-17 05:16] LABS: Platelet Estimate ADEQUATE (ADEQ); Red Cell Morphology NORM C+C NORMAL (NORM C&C)
[2020-08-17 05:17] LABS: Absolute Lymphocyte Count 3.89 X10^3/uL (0.83-4.51); Absolute Neutrophil Count 23.1 X10^3/uL (2.0-7.7); Lymphocyte # 3.89 X10^3/ul (4.0); Neutrophil # 23.08 X10^3/uL (2.7-7.7)
--- NOTE | 2020-08-17 05:40 | PN_ITS ---
Subjective: The patient was seen and examined at the bedside this morning. Events from the last 24 hours have been reviewed. The patient is currently afebrile, hemodynamically stable and maintaining appropriate oxygen saturations on room air. Objective: The patient's most recent lab work, culture data and imaging studies have all been personally reviewed. Surface echocardiogram revealed normal LV function with an ejection fraction of 65%. Diastolic function was indeterminate. Right ventricular systolic pressure was estimated to be 36 mmHg. Liver ultrasound was unremarkable. Renal ultrasound was also noted to be normal. Preliminary blood culture was positive for gram-negative rods. Preliminary urine culture revealed mixed gram-positive and gram-negative organisms. General: Alert, Cooperative HEENT: Atraumatic, Normocephalic Oral: No Gingival or Mucosal Lesions/ Ulcerations Neck: Supple, No Nodes, Trachea Midline Lungs: Diminished Cardiovascular: Normal S1, Normal S2, Irregular Rate Abdomen: Bowel Sounds Present, Soft, Non Tender Extremities: No clubbing, No cyanosis, Edema Skin: No breakdown Musculoskeletal: No Tenderness to Palpation of Joints or Extremities Lymphatic: No Cervical, Supraclavicular, or Inguinal Adenopathy Neurological: Neuro grossly intact Psych/Mental Status: Flat Affect Vital Signs Temp Pulse Resp BP Pulse Ox 98.8 F 112 H 15 100/55 L 98 08/17/20 05:00 08/17/20 05:00 08/17/20 05:00 08/17/20 05:00 08/17/20 05:00 Oxygen Delivery Method Room Air Weight: 231 lb 8 oz Body Mass Index (BMI) 35.7 Finger Stick Blood Glucose 123 Intake and Output for Last 24 Hours 08/15/20 08/16/20 08/17/20 23:59 23:59 23:59 Intake Total 2405.72 / 2414.72 4225.35 / 4225.35 140.8 / 140.8 Output Total 1235 / 1235 325 / 325 Balance 2405.72 / 2414.72 2990.35 / 2990.35 -184.2 / -184.2 Labs (Last 48 Hours) 08/15/20 08/15/20 08/15/20 13:10 13:45 13:45 WBC 13.1 H RBC 4.23 Hgb 11.0 L Hct 37.1 MCV 87.7 MCH 26.0 L MCHC 29.6 L RDW Std Deviation 46.6 H RDW Coeff of Nely 14.6 Plt Count 176 MPV 10.5 Immature Gran % (Auto) 0.800 Neut % (Auto) 92.4 H Lymph % (Auto) 5.0 L [place] % (Auto) 1.6 Eos % (Auto) 0.0 Baso % (Auto) 0.2 Absolute Neuts (auto) 12.1 H Absolute Lymphs (auto) 0.65 L Total Counted Neutrophils % (Manual) Band Neutrophils % Lymphocytes % (Manual) Monocytes % (Manual) Eosinophils % (Manual) Nucleated RBC % 0 Differential Comment SCANNED Diff Path Review Toxic Granulation Toxic Vacuolation Platelet Estimate RBC Morphology PT 14.9 INR 1.2 APTT 26.6 Sodium Potassium Chloride Carbon Dioxide Anion Gap BUN Creatinine Estim Creat Clear Calc Est GFR (MDRD) Af Amer Est GFR (MDRD) Non-Af BUN/Creatinine Ratio Glucose Hemoglobin A1c Lactic Acid Calcium Magnesium Total Bilirubin Direct Bilirubin AST ALT Alkaline Phosphatase Troponin I Total Protein Albumin Globulin Albumin/Globulin Ratio Triglycerides Cholesterol LDL Cholesterol VLDL Cholesterol HDL Cholesterol Urine Color Urine Clarity Urine pH Ur Specific [place] Urine Protein Urine Glucose (UA) Urine Ketones Urine Occult Blood Urine Nitrite Urine Bilirubin Urine Urobilinogen Ur Leukocyte Esterase Urine RBC Urine WBC Ur Squamous Epith Cells Urine Bacteria Urine Mucus COVID-19 (MIKE) POC Glucose 79 08/15/20 08/15/20 08/15/20 13:45 13:45 14:00 WBC RBC Hgb Hct MCV MCH MCHC RDW Std Deviation RDW Coeff of Nely Plt Count MPV Immature Gran % (Auto) Neut % (Auto) Lymph % (Auto) [place] % (Auto) Eos % (Auto) Baso % (Auto) Absolute Neuts (auto) Absolute Lymphs (auto) Total Counted Neutrophils % (Manual) Band Neutrophils % Lymphocytes % (Manual) Monocytes % (Manual) Eosinophils % (Manual) Nucleated RBC % Differential Comment Diff Path Review Toxic Granulation Toxic Vacuolation Platelet Estimate RBC Morphology PT INR APTT Sodium 146 H Potassium 3.1 L Chloride 117 H Carbon Dioxide 20.0 L Anion Gap 9 BUN 38 H Creatinine 1.84 H Estim Creat Clear Calc 27.01 Est GFR (MDRD) Af Amer 35 L Est GFR (MDRD) Non-Af 29 L BUN/Creatinine Ratio 20.7 H Glucose 68 L Hemoglobin A1c Lactic Acid 3.9 H* Calcium 9.3 Magnesium Total Bilirubin Direct Bilirubin AST ALT Alkaline Phosphatase Troponin I 6.670 H* Total Protein Albumin Globulin Albumin/Globulin Ratio Triglycerides Cholesterol LDL Cholesterol VLDL Cholesterol HDL Cholesterol Urine Color Yellow Urine Clarity Sl. Cloudy Urine pH 5.0 Ur Specific [place] 1.020 Urine Protein 30 H Urine Glucose (UA) Normal Urine Ketones 5 H Urine Occult Blood 50 H Urine Nitrite Negative Urine Bilirubin Negative Urine Urobilinogen Normal Ur Leukocyte Esterase 500 H Urine RBC 0-5 SEEN Urine WBC 50-100 SEEN Ur Squamous Epith Cells 5-10 SEEN Urine Bacteria 3+ Urine Mucus 0 SEEN COVID-19 (MIKE) POC Glucose 08/15/20 08/15/20 08/15/20 15:42 16:28 16:28 WBC RBC Hgb Hct MCV MCH MCHC RDW Std Deviation RDW Coeff of Nely Plt Count MPV Immature Gran % (Auto) Neut % (Auto) Lymph % (Auto) [place] % (Auto) Eos % (Auto) Baso % (Auto) Absolute Neuts (auto) Absolute Lymphs (auto) Total Counted Neutrophils % (Manual) Band Neutrophils % Lymphocytes % (Manual) Monocytes % (Manual) Eosinophils % (Manual) Nucleated RBC % Differential Comment Diff Path Review Toxic Granulation Toxic Vacuolation Platelet Estimate RBC Morphology PT INR APTT Sodium Potassium Chloride Carbon Dioxide Anion Gap BUN Creatinine Estim Creat Clear Calc Est GFR (MDRD) Af Amer Est GFR (MDRD) Non-Af BUN/Creatinine Ratio Glucose Hemoglobin A1c Lactic Acid 3.5 H* Calcium Magnesium 1.9 Total Bilirubin Direct Bilirubin AST ALT Alkaline Phosphatase Troponin I 8.570 H* Total Protein Albumin Globulin Albumin/Globulin Ratio Triglycerides Cholesterol LDL Cholesterol VLDL Cholesterol HDL Cholesterol Urine Color Urine Clarity Urine pH Ur Specific [place] Urine Protein Urine Glucose (UA) Urine Ketones Urine Occult Blood Urine Nitrite Urine Bilirubin Urine Urobilinogen Ur Leukocyte Esterase Urine RBC Urine WBC Ur Squamous Epith Cells Urine Bacteria Urine Mucus COVID-19 (MIKE) Not Detected POC Glucose 08/15/20 08/15/20 08/15/20 16:28 16:28 16:28 WBC RBC Hgb Hct MCV MCH MCHC RDW Std Deviation RDW Coeff of Nely Plt Count MPV Immature Gran % (Auto) Neut % (Auto) Lymph % (Auto) [place] % (Auto) Eos % (Auto) Baso % (Auto) Absolute Neuts (auto) Absolute Lymphs (auto) Total Counted Neutrophils % (Manual) Band Neutrophils % Lymphocytes % (Manual) Monocytes % (Manual) Eosinophils % (Manual) Nucleated RBC % Differential Comment Diff Path Review Toxic Granulation Toxic Vacuolation Platelet Estimate RBC Morphology PT INR APTT Sodium Potassium Chloride Carbon Dioxide Anion Gap BUN Creatinine Estim Creat Clear Calc Est GFR (MDRD) Af Amer Est GFR (MDRD) Non-Af BUN/Creatinine Ratio Glucose Hemoglobin A1c 7.7 H Lactic Acid Calcium Magnesium 1.8 Total Bilirubin 0.70 Direct Bilirubin 0.54 H AST 488 H ALT 326 H Alkaline Phosphatase 233 H Troponin I Total Protein 7.0 Albumin 2.4 L Globulin 4.6 H Albumin/Globulin Ratio Triglycerides Cholesterol LDL Cholesterol VLDL Cholesterol HDL Cholesterol Urine Color Urine Clarity Urine pH Ur Specific [place] Urine Protein Urine Glucose (UA) Urine Ketones Urine Occult Blood Urine Nitrite Urine Bilirubin Urine Urobilinogen Ur Leukocyte Esterase Urine RBC Urine WBC Ur Squamous Epith Cells Urine Bacteria Urine Mucus COVID-19 (MIKE) POC Glucose 08/15/20 08/15/20 08/15/20 16:51 18:00 20:15 WBC RBC Hgb Hct MCV MCH MCHC RDW Std Deviation RDW Coeff of Nely Plt Count MPV Immature Gran % (Auto) Neut % (Auto) Lymph % (Auto) [place] % (Auto) Eos % (Auto) Baso % (Auto) Absolute Neuts (auto) Absolute Lymphs (auto) Total Counted Neutrophils % (Manual) Band Neutrophils % Lymphocytes % (Manual) Monocytes % (Manual) Eosinophils % (Manual) Nucleated RBC % Differential Comment Diff Path Review Toxic Granulation Toxic Vacuolation Platelet Estimate RBC Morphology PT INR APTT Sodium Potassium Chloride Carbon Dioxide Anion Gap BUN Creatinine Estim Creat Clear Calc Est GFR (MDRD) Af Amer Est GFR (MDRD) Non-Af BUN/Creatinine Ratio Glucose Hemoglobin A1c Lactic Acid 0.9 Calcium Magnesium Total Bilirubin Direct Bilirubin AST ALT Alkaline Phosphatase Troponin I 7.450 H* Total Protein Albumin Globulin Albumin/Globulin Ratio Triglycerides Cholesterol LDL Cholesterol VLDL Cholesterol HDL Cholesterol Urine Color Urine Clarity Urine pH Ur Specific [place] Urine Protein Urine Glucose (UA) Urine Ketones Urine Occult Blood Urine Nitrite Urine Bilirubin Urine Urobilinogen Ur Leukocyte Esterase Urine RBC Urine WBC Ur Squamous Epith Cells Urine Bacteria Urine Mucus COVID-19 (MIKE) POC Glucose 100 08/15/20 08/15/20 08/15/20 20:15 20:15 21:13 WBC RBC Hgb Hct MCV MCH MCHC RDW Std Deviation RDW Coeff of Nely Plt Count MPV Immature Gran % (Auto) Neut % (Auto) Lymph % (Auto) [place] % (Auto) Eos % (Auto) Baso % (Auto) Absolute Neuts (auto) Absolute Lymphs (auto) Total Counted Neutrophils % (Manual) Band Neutrophils % Lymphocytes % (Manual) Monocytes % (Manual) Eosinophils % (Manual) Nucleated RBC % Differential Comment Diff Path Review Toxic Granulation Toxic Vacuolation Platelet Estimate RBC Morphology PT INR APTT > 250.0 H* Sodium Potassium Chloride Carbon Dioxide Anion Gap BUN Creatinine Estim Creat Clear Calc Est GFR (MDRD) Af Amer Est GFR (MDRD) Non-Af BUN/Creatinine Ratio Glucose Hemoglobin A1c Lactic Acid 3.6 H* Calcium Magnesium Total Bilirubin Direct Bilirubin AST ALT Alkaline Phosphatase Troponin I Total Protein Albumin Globulin Albumin/Globulin Ratio Triglycerides Cholesterol LDL Cholesterol VLDL Cholesterol HDL Cholesterol Urine Color Urine Clarity Urine pH Ur Specific [place] Urine Protein Urine Glucose (UA) Urine Ketones Urine Occult Blood Urine Nitrite Urine Bilirubin Urine Urobilinogen Ur Leukocyte Esterase Urine RBC Urine WBC Ur Squamous Epith Cells Urine Bacteria Urine Mucus COVID-19 (MIKE) POC Glucose 156 H 08/16/20 08/16/20 08/16/20 03:55 05:20 05:20 WBC 36.6 H* RBC 4.37 Hgb 11.4 L Hct 39.8 MCV 91.1 MCH 26.1 L MCHC 28.6 L RDW Std Deviation 49.9 H RDW Coeff of Nely 14.8 H Plt Count 173 MPV 11.4 Immature Gran % (Auto) Neut % (Auto) Not Reportable Lymph % (Auto) [place] % (Auto) Eos % (Auto) Baso % (Auto) Absolute Neuts (auto) 31.5 H Absolute Lymphs (auto) 4.02 Total Counted 100 Neutrophils % (Manual) 70 Band Neutrophils % 16 H Lymphocytes % (Manual) 11 L Monocytes % (Manual) 3 Eosinophils % (Manual) Nucleated RBC % Differential Comment Diff Path Review May foll Toxic Granulation 3+ Toxic Vacuolation 1+ Platelet Estimate ADEQUATE RBC Morphology NORM C+C PT INR APTT Sodium 142 Potassium 4.0 Chloride 113 H Carbon Dioxide 18.0 L Anion Gap 11 BUN 44 H Creatinine 2.30 H Estim Creat Clear Calc 21.61 Est GFR (MDRD) Af Amer 27 L Est GFR (MDRD) Non-Af 22 L BUN/Creatinine Ratio 19.1 Glucose 192 H Hemoglobin A1c Lactic Acid Calcium 8.6 Magnesium Total Bilirubin 0.40 Direct Bilirubin AST 257 H ALT 272 H Alkaline Phosphatase 208 H Troponin I Total Protein 7.5 Albumin 2.6 L Globulin 4.9 H Albumin/Globulin Ratio 0.5 L Triglycerides 55 Cholesterol 104 LDL Cholesterol 27 VLDL Cholesterol 11 HDL Cholesterol 66 Urine Color Urine Clarity Urine pH Ur Specific [place] Urine Protein Urine Glucose (UA) Urine Ketones Urine Occult Blood Urine Nitrite Urine Bilirubin Urine Urobilinogen Ur Leukocyte Esterase Urine RBC Urine WBC Ur Squamous Epith Cells Urine Bacteria Urine Mucus COVID-19 (MIKE) POC Glucose 205 H 08/16/20 08/16/20 08/16/20 05:20 08:03 12:10 WBC RBC Hgb Hct MCV MCH MCHC RDW Std Deviation RDW Coeff of Nely Plt Count MPV Immature Gran % (Auto) Neut % (Auto) Lymph % (Auto) [place] % (Auto) Eos % (Auto) Baso % (Auto) Absolute Neuts (auto) Absolute Lymphs (auto) Total Counted Neutrophils % (Manual) Band Neutrophils % Lymphocytes % (Manual) Monocytes % (Manual) Eosinophils % (Manual) Nucleated RBC % Differential Comment Diff Path Review Toxic Granulation Toxic Vacuolation Platelet Estimate RBC Morphology PT INR APTT 223.3 H* Sodium Potassium Chloride Carbon Dioxide Anion Gap BUN Creatinine Estim Creat Clear Calc Est GFR (MDRD) Af Amer Est GFR (MDRD) Non-Af BUN/Creatinine Ratio Glucose Hemoglobin A1c Lactic Acid Calcium Magnesium Total Bilirubin Direct Bilirubin AST ALT Alkaline Phosphatase Troponin I Total Protein Albumin Globulin Albumin/Globulin Ratio Triglycerides Cholesterol LDL Cholesterol VLDL Cholesterol HDL Cholesterol Urine Color Urine Clarity Urine pH Ur Specific [place] Urine Protein Urine Glucose (UA) Urine Ketones Urine Occult Blood Urine Nitrite Urine Bilirubin Urine Urobilinogen Ur Leukocyte Esterase Urine RBC Urine WBC Ur Squamous Epith Cells Urine Bacteria Urine Mucus COVID-19 (MIKE) POC Glucose 168 H 138 H 08/16/20 08/16/20 08/16/20 16:55 18:17 20:13 WBC RBC Hgb Hct MCV MCH MCHC RDW Std Deviation RDW Coeff of Nely Plt Count MPV Immature Gran % (Auto) Neut % (Auto) Lymph % (Auto) [place] % (Auto) Eos % (Auto) Baso % (Auto) Absolute Neuts (auto) Absolute Lymphs (auto) Total Counted Neutrophils % (Manual) Band Neutrophils % Lymphocytes % (Manual) Monocytes % (Manual) Eosinophils % (Manual) Nucleated RBC % Differential Comment Diff Path Review Toxic Granulation Toxic Vacuolation Platelet Estimate RBC Morphology PT INR APTT 153.3 H* Sodium Potassium Chloride Carbon Dioxide Anion Gap BUN Creatinine Estim Creat Clear Calc Est GFR (MDRD) Af Amer Est GFR (MDRD) Non-Af BUN/Creatinine Ratio Glucose Hemoglobin A1c Lactic Acid Calcium Magnesium Total Bilirubin Direct Bilirubin AST ALT Alkaline Phosphatase Troponin I Total Protein Albumin Globulin Albumin/Globulin Ratio Triglycerides Cholesterol LDL Cholesterol VLDL Cholesterol HDL Cholesterol Urine Color Urine Clarity Urine pH Ur Specific [place] Urine Protein Urine Glucose (UA) Urine Ketones Urine Occult Blood Urine Nitrite Urine Bilirubin Urine Urobilinogen Ur Leukocyte Esterase Urine RBC Urine WBC Ur Squamous Epith Cells Urine Bacteria Urine Mucus COVID-19 (MIKE) POC Glucose 66 L 149 H 08/16/20 08/17/20 08/17/20 22:19 01:42 03:27 WBC RBC Hgb Hct MCV MCH MCHC RDW Std Deviation RDW Coeff of Nely Plt Count MPV Immature Gran % (Auto) Neut % (Auto) Lymph % (Auto) [place] % (Auto) Eos % (Auto) Baso % (Auto) Absolute Neuts (auto) Absolute Lymphs (auto) Total Counted Neutrophils % (Manual) Band Neutrophils % Lymphocytes % (Manual) Monocytes % (Manual) Eosinophils % (Manual) Nucleated RBC % Differential Comment Diff Path Review Toxic Granulation Toxic Vacuolation Platelet Estimate RBC Morphology PT INR APTT 71.2 H Sodium Potassium Chloride Carbon Dioxide Anion Gap BUN Creatinine Estim Creat Clear Calc Est GFR (MDRD) Af Amer Est GFR (MDRD) Non-Af BUN/Creatinine Ratio Glucose Hemoglobin A1c Lactic Acid Calcium Magnesium Total Bilirubin Direct Bilirubin AST ALT Alkaline Phosphatase Troponin I Total Protein Albumin Globulin Albumin/Globulin Ratio Triglycerides Cholesterol LDL Cholesterol VLDL Cholesterol HDL Cholesterol Urine Color Urine Clarity Urine pH Ur Specific [place] Urine Protein Urine Glucose (UA) Urine Ketones Urine Occult Blood Urine Nitrite Urine Bilirubin Urine Urobilinogen Ur Leukocyte Esterase Urine RBC Urine WBC Ur Squamous Epith Cells Urine Bacteria Urine Mucus COVID-19 (MIKE) POC Glucose 166 H 101 08/17/20 08/17/20 04:10 04:10 WBC 27.8 H RBC 3.33 L Hgb 8.7 L Hct 28.6 L MCV 85.9 D MCH 26.1 L MCHC 30.4 L D RDW Std Deviation 48.1 H RDW Coeff of Nely 15.0 H Plt Count 134 L MPV 10.7 Immature Gran % (Auto) [employer] Neut % (Auto) [employer] Lymph % (Auto) [employer] [place] % (Auto) [employer] Eos % (Auto) [employer] Baso % (Auto) [employer] Absolute Neuts (auto) 23.1 H Absolute Lymphs (auto) 3.89 Total Counted 100 Neutrophils % (Manual) 81 H Band Neutrophils % 2 Lymphocytes % (Manual) 14 L Monocytes % (Manual) 2 Eosinophils % (Manual) 1 Nucleated RBC % 0 Differential Comment Diff Path Review May foll Toxic Granulation Toxic Vacuolation Platelet Estimate ADEQUATE RBC Morphology NORM C+C PT INR APTT Sodium 146 H Potassium 3.4 L Chloride 117 H Carbon Dioxide 20.0 L Anion Gap 9 BUN 41 H Creatinine 1.33 H Estim Creat Clear Calc 37.37 Est GFR (MDRD) Af Amer 51 L Est GFR (MDRD) Non-Af 42 L BUN/Creatinine Ratio 30.8 H Glucose 96 Hemoglobin A1c Lactic Acid Calcium 8.2 L Magnesium Total Bilirubin Direct Bilirubin AST ALT Alkaline Phosphatase Troponin I Total Protein Albumin Globulin Albumin/Globulin Ratio Triglycerides Cholesterol LDL Cholesterol VLDL Cholesterol HDL Cholesterol Urine Color Urine Clarity Urine pH Ur Specific [place] Urine Protein Urine Glucose (UA) Urine Ketones Urine Occult Blood Urine Nitrite Urine Bilirubin Urine Urobilinogen Ur Leukocyte Esterase Urine RBC Urine WBC Ur Squamous Epith Cells Urine Bacteria Urine Mucus COVID-19 (MIKE) POC Glucose Microbiology 08/15/20 13:45 Blood Culture (Wb) - Left Wrist Blood Culture - Preliminary 08/15/20 14:00 Urine, Catheterized Urine Culture - Preliminary Mixed Gram Pos & Gram Neg Org Clinical Impression(s) from Imaging Studies Brain CT 08/15/20 12:57 IMPRESSION: Chronic involutional changes of the brain. Small old lacunar infarcts in the basal ganglia bilaterally as well as the left thalamus. N.B. : The above information has been verbally conveyed by Eyal Campoverde to JULIANO West on 08/15/2020 13:20:33 (ET). Electronically Signed: Eyal Campoverde, at 13:21 EDT , Service support , ADDENDUM: 08/15/20 1328 IMPRESSION: Chronic involutional changes of the brain. Small old lacunar infarcts in the basal ganglia bilaterally as well as the left thalamus. N.B. : The above information has been verbally conveyed by Eyal Campoverde to JULIANO West on 08/15/2020 13:20:33 (ET). Electronically Signed: Eyal Campoverde, at 13:21 EDT , Service support , Chest X-Ray 08/15/20 14:40 IMPRESSION: No acute abnormality is seen. Electronically Signed: Eyal Campoverde, at 14:55 EDT , Service support , Liver Ultrasound 08/16/20 06:38 IMPRESSION: Normal ultrasound of the kidneys and urinary bladder. Electronically Signed: Klever Perdue MD at 9:29 EDT Tel , Service support , Medical Necessity - Tobacco Use Smoking Status: Unknown if ever smoked Tobacco Use: - - Unknown due to patient confusion Assessment/Plan All Active Problems UTI (urinary tract infection) (Acute) Severe sepsis (Acute) NSTEMI (non-ST elevated myocardial infarction) (Acute) RECOMMENDATIONS: 1. Continue empiric antimicrobials. 2. Encourage incentive spirometer use and mobilize patient as tolerated. 3. Additional work-up per cardiology recommendations. 4. The patient is medically stable for transfer out of the intensive care unit. IMPRESSIONS: 1. Severe sepsis with concern for urinary tract source of infection Concern for primary urinary tract source of infection with secondary hematogenous spread. Plan to continue current supportive measures. She will remain on broad-spectrum antimicrobials as ordered, pending further infectious work-up. 2. Encephalopathy Improved. Likely metabolic in etiology and related to underlying infectious process. As noted above, we will continue current supportive measures and treat underlying infection as indicated. 3. Non-ST segment elevation [place] Suspect likely secondary to demand ischemia in the setting of #1. Cardiology is currently following. Echocardiogram was unrevealing. 4. Acute kidney injury Improving. Likely prerenal in etiology. Continue to monitor urine output for now. No current indication for renal replacement therapy. 5. Elevated transaminases Unclear chronicity and etiology. Liver ultrasound was unremarkable. 6. Hypertension/hyperlipidemia/diabetes mellitus/GERD/history of CVA Complicates care, management, recovery and prognosis. Continue to hold antihypertensives. This note was generated with [facility] EHR dictation software. It may contain incorrect words, spelling, and punctuation that were not noted in checking the note before signing. Inpatient E&M: 29378 Subs Hosp L3
[2020-08-17] MEDS: 0.9% Saline Lock 10 ML Syringe IV (06:39)
[2020-08-17] MEDS: Dextrose 5%-Lactated Ringers 1,000 ML 125 ML IV ×2 (06:39→16:12)
[2020-08-17 06:46] LABS: Bedside Glucose 97 mg/dL (70-110)
--- NOTE | 2020-08-17 07:30 | PCM.PN.HOSP ---
Patient Problems: Active and Suspected Problems UTI (urinary tract infection) (Acute) Severe sepsis (Acute) NSTEMI (non-ST elevated myocardial infarction) (Acute) Subjective: Patient seen and examined. She had no active events overnight. She has remained afebrile hemodynamically stable. Review of stems otherwise negative. Preliminary blood cultures are growing gram-negative rods. Speciation is pending. Urine culture revealed mixed gram-positive and gram-negative rods. Calcium is 3.4 today and sodium is 146. Right cell count is down to 27.8 and hemoglobin is down to 8.7. Vitals/I&O's: Vital Signs Temp Pulse Resp BP Pulse Ox 98.1 F 98 13 118/59 L 97 08/17/20 06:00 08/17/20 06:00 08/17/20 06:00 08/17/20 06:00 08/17/20 06:00 Oxygen Delivery Method Room Air Weight: 231 lb 8 oz Body Mass Index (BMI) 35.7 Finger Stick Blood Glucose 123 Intake and Output for Last 24 Hours 08/15/20 08/16/20 08/17/20 23:59 23:59 23:59 Intake Total 2405.72 / 2414.72 4225.35 / 4225.35 1140.8 / 1140.8 Output Total 1235 / 1235 325 / 325 Balance 2405.72 / 2414.72 2990.35 / 2990.35 815.8 / 815.8 General: Alert, Cooperative, No apparent distress, Confused HEENT: Atraumatic, PERRLA, EOMI, Normocephalic Oral: Dry Mucosa Neck: Supple, No JVD, Negative Carotid Bruits Lungs: Clear to auscultation, Normal air movement, No rhonchi, No wheeze, No rales, Tachypneic Cardiovascular: Normal S1, Normal S2, No murmurs, Tachycardic Abdomen: Bowel Sounds Present, Soft, Non Tender, Non-Distended, No Hepato-splenomegaly Extremities: No clubbing, No cyanosis, Capillary Refill Less than 3 Seconds, - - bilateral 1+ pitting edema Skin: No rashes, No breakdown Musculoskeletal: No Tenderness to Palpation of Joints or Extremities Lymphatic: No Cervical, Supraclavicular, or Inguinal Adenopathy Neurological: Cranial nerves II-XII grossly intact Psych/Mental Status: Normal Affect, Appropriate Microbiology Past 72 Hours 08/15/20 13:45 Blood Culture (Wb) - Left Wrist Blood Culture - Preliminary 08/15/20 14:00 Urine, Catheterized Urine Culture - Preliminary Mixed Gram Pos & Gram Neg Org Laboratory Results 08/16/20 08:03: POC Glucose 168 H 08/16/20 12:10: POC Glucose 138 H 08/16/20 16:55: APTT 153.3 H* 08/16/20 18:17: POC Glucose 66 L 08/16/20 20:13: POC Glucose 149 H 08/16/20 22:19: POC Glucose 166 H 08/17/20 01:42: APTT 71.2 H 08/17/20 03:27: POC Glucose 101 08/17/20 04:10: WBC 27.8 H, RBC 3.33 L, Hgb 8.7 L, Hct 28.6 L, MCV 85.9 D, MCH 26.1 L, MCHC 30.4 L D, RDW Std Deviation 48.1 H, RDW Coeff of Nely 15.0 H, Plt Count 134 L, MPV 10.7, Immature Gran % (Auto) HEEL SEWER, Neut % (Auto) HEEL SEWER, Lymph % (Auto) HEEL SEWER, [place] % (Auto) HEEL SEWER, Eos % (Auto) HEEL SEWER, Baso % (Auto) HEEL SEWER, Absolute Neuts (auto) 23.1 H, Absolute Lymphs (auto) 3.89, Total Counted 100, Neutrophils % (Manual) 81 H, Band Neutrophils % 2, Lymphocytes % (Manual) 14 L, Monocytes % (Manual) 2, Eosinophils % (Manual) 1, Nucleated RBC % 0, Diff Path Review May , Platelet Estimate ADEQUATE, RBC Morphology NORM C+C 08/17/20 04:10: Sodium 146 H, Potassium 3.4 L, Chloride 117 H, Carbon Dioxide 20.0 L, Anion Gap 9, BUN 41 H, Creatinine 1.33 H, Estim Creat Clear Calc 37.37, Est GFR (MDRD) Af Amer 51 L, Est GFR (MDRD) Non-Af 42 L, BUN/Creatinine Ratio 30.8 H, Glucose 96, Calcium 8.2 L 08/17/20 06:42: POC Glucose [address] 08/15/20 12:57 IMPRESSION: Chronic involutional changes of the brain. Small old lacunar infarcts in the basal ganglia bilaterally as well as the left thalamus. N.B. : The above information has been verbally conveyed by Eyal Campoverde to JULIANO West on 08/15/2020 13:20:33 (ET). Electronically Signed: Eyal Campoverde, at 13:21 EDT , Service support , ADDENDUM: 08/15/20 1328 IMPRESSION: Chronic involutional changes of the brain. Small old lacunar infarcts in the basal ganglia bilaterally as well as the left thalamus. N.B. : The above information has been verbally conveyed by Eyal Campoverde to JULIANO De AndaARLEN on 08/15/2020 13:20:33 (ET). Electronically Signed: Eyal Campoverde, at 13:21 EDT , Service support , Chest X-Ray 08/15/20 14:40 IMPRESSION: No acute abnormality is seen. Electronically Signed: Eyal Campoverde, at 14:55 EDT , Service support , Liver Ultrasound 08/16/20 06:38 IMPRESSION: Normal ultrasound of the kidneys and urinary bladder. Electronically Signed: Klever Perdue MD at 9:29 EDT Tel , Service support , Current Medications Acetaminophen (Acetaminophen 325 Mg Tablet) 650 mg PO Q6H PRN PRN PRN Reason: Pain Score 1-10/Temp > 100.7 F Last Admin: 08/15/20 19:58 Dose: 650 mg Documented by: Albuterol Sulfate (Albuterol 2.5 Mg/3 Ml Vial.Neb.) 2.5 mg INHALATION Q2H PRN PRN PRN Reason: Dyspnea, wheezing Aspirin (Aspirin E.C. 81 Mg Tablet) 81 mg PO DAILY@0800 [facility] Last Admin: 08/16/20 12:28 Dose: 81 mg Documented by: Atorvastatin Calcium (Atorvastatin Calcium 40 Mg Tablet) 40 mg PO QHS [facility] Last Admin: 08/16/20 22:00 Dose: 40 mg Documented by: Clopidogrel Bisulfate (Clopidogrel Bisulfate 75 Mg Tablet) 75 mg PO DAILY [facility] Heparin Sodium (Porcine) (Heparin Injection (Vial) 5,000 Unit/Ml Vial) 0 unit IV UD PRN; Protocol PRN Reason: dose adjustment Heparin Sodium/Dextrose () 25,000 units in 250 mls @ 15 mls/hr IV .[id number] [facility]; Protocol Last Titration: 08/17/20 02:10 Dose: 600 units/hr, 6 mls/hr Documented by: Ceftriaxone Sodium (Rocephin) 1 gm in 50 mls @ 100 mls/hr IV Q24 [facility] Stop: 08/23/20 10:01 Last Infusion: 08/16/20 18:54 Dose: Infused Documented by: Dextrose/Lactated Ringer's () 1,000 mls @ 125 mls/hr IV .Q8H [facility] Last Admin: 08/17/20 06:39 Dose: 125 mls/hr Documented by: Insulin Glargine (Insulin Glargine 100 Units/Ml Pen) 40 units SC QHS [facility] Last Admin: 08/16/20 18:26 Dose: Not Given Documented by: Insulin Human Lispro (Insulin Lispro 100 Unit/Ml Insuln.Pen) 0 unit SC ACHS [facility]; Protocol Last Admin: 08/16/20 22:46 Dose: 1 units Documented by: Iopamidol (Contrast Allergy Safety Check) 0 ml IV X1 [facility] Last Admin: 08/16/20 18:09 Dose: Not Given Documented by: Pantoprazole Sodium (Pantoprazole Sodium 20 Mg Tablet) 20 mg PO DAILY [facility] Last Admin: 08/16/20 12:28 Dose: 20 mg Documented by: Sodium Chloride (0.9% Saline Lock 10 Ml Syringe) 10 - 40 ml IV UD PRN PRN Reason: SALINE FLUSH Last Admin: 08/17/20 06:39 Dose: 40 ml Documented by: STROKE Vital Signs/Narrative: Vital Signs Temp Pulse Resp BP Pulse Ox 08/17/20 06:00 98.1 F 98 13 118/59 L 97 08/17/20 05:00 98.8 F 112 H 15 100/55 L 98 08/17/20 04:00 98.5 F 108 H 15 127/68 H 98 Medical Necessity - Tobacco Use Smoking Status: Unknown if ever smoked Tobacco Use: - - Unknown due to patient confusion Assessment/Plan All Active Problems UTI (urinary tract infection) (Acute) Severe sepsis (Acute) NSTEMI (non-ST elevated myocardial infarction) (Acute) # Acute metabolic encephalopathy due to severe sepsis nad nonstemi Patient is alert today. She does have baseline confusion. UA showed evidence of UTI with 3+ bacteria. WBC has trended up to 36 today from 13 on admission. On IV ceftriaxone. Urine and blood cultures pending. Been hydrated with IV fluids. #Severe sepsis due to UTI: preliminary blood culture growing gram negative rods urine growing mixed gram positive and gram negative rods on IV ceftriaxone tachypnea and tachycardia as well as fever are resolving #UTI: As above #Non-STEMI Troponin peaked at 7.4. Was 6.7 on admission. Cardiology on board. On heparin drip. Also on Plavix and aspirin. 2D echo showed EF of 65%. On high intensity statin. #Type 2 diabetes mellitus: Was hypoglycemic on admission. Hold Lantus 40 units nightly. Insulin sliding scale. Accu-Cheks AC at bedtime. #Hypokalemia: Resolved. #SEGUN: CR is now down to 1.33. will monitor #History of CVA: On aspirin and statin. BP meds were held on account of hypotension. #Chronic iron deficiency anemia: Hemoglobin is 11. Stable. On oral iron supplementation. DVT prophylaxis: On heparin drip. Inpatient E&M: [id number] [facility] L3
[2020-08-17 08:43] LABS: Partial Thromboplast Time 61.2 Seconds (24.1-36.2)
--- NOTE | 2020-08-17 09:56 | PN.CARD_ITS ---
Subjectve: The patient denies any ongoing chest discomfort or difficulty breathing at this time. Objective: Vital Signs Temp Pulse Resp BP Pulse Ox 97.9 F 64 21 H 105/77 99 08/17/20 08:00 08/17/20 08:00 08/17/20 08:00 08/17/20 08:00 08/17/20 08:00 Oxygen Delivery Method Room Air Weight: 231 lb 8 oz Body Mass Index (BMI) 35.7 Finger Stick Blood Glucose 123 Intake and Output for Last 24 Hours 08/15/20 08/16/20 08/17/20 23:59 23:59 23:59 Intake Total 2405.72 / 2414.72 4225.35 / 4225.35 1180.3 / 1180.3 Output Total 1235 / 1235 325 / 325 Balance 2405.72 / 2414.72 2990.35 / 2990.35 855.3 / 855.3 General: Awake, Cooperative, No Acute Distress, Obese HEENT: Atraumatic, Normocephalic, PERRL, EOMI, Sclera Non Icteric Neck: Supple, Good ROM, No JVD Lungs: Clear to auscultation Cardiovascular: Irregular Rhythm, Normal S1, Normal S2 Abdomen: Bowel Sounds Present, Soft Extremities: No edema 08/16/20 16:55: APTT 153.3 H* 08/17/20 01:42: APTT 71.2 H 08/17/20 04:10: WBC 27.8 H, RBC 3.33 L, Hgb 8.7 L, Hct 28.6 L, MCV 85.9 D, MCH 26.1 L, MCHC 30.4 L D, Plt Count 134 L, MPV 10.7, Immature Gran % (Auto) LOWER IN SUPERVISOR, Neut % (Auto) LOWER IN SUPERVISOR, Lymph % (Auto) LOWER IN SUPERVISOR, [place] % (Auto) LOWER IN SUPERVISOR, Eos % (Auto) LOWER IN SUPERVISOR, Baso % (Auto) LOWER IN SUPERVISOR, Absolute Neuts (auto) 23.1 H, Total Counted 100, Neutrophils % (Man ual) 81 H, Band Neutrophils % 2, Lymphocytes % (Manual) 14 L, Monocytes % (Manual) 2, Eosinophils % (Manual) 1, Nucleated RBC % 0 08/17/20 04:10: Sodium 146 H, Potassium 3.4 L, Chloride 117 H, Carbon Dioxide 20.0 L, Anion Gap 9, BUN 41 H, Creatinine 1.33 H, Est GFR (MDRD) Af Amer 51 L, Est GFR (MDRD) Non-Af 42 L, BUN/Creatinine Ratio 30.8 H, Glucose 96, Calcium 8.2 L 08/17/20 08:12: APTT 61.2 H Rhythm: Sinus rhythm; 1 episode appearing compatible with a 5 beat nonsustained ventricular tachycardia Medical Necessity - Tobacco Use Smoking Status: Unknown if ever smoked Tobacco Use: - - Unknown due to patient confusion Assessment/Plan 1. Non-ST segment elevation [place] The patient does have abnormal cardiac enzymes. This is being reported in the setting of urosepsis. Thus it is unclear whether this is a type II event secondary to supply demand mismatch versus undiagnosed CAD with a type I event. The present time she appears to be without any acute symptoms. Her ECG demonstrates no acute changes. She will be monitored. Her troponin I levels appear to be decreasing. The cardiovascular concerns were discussed with her. Additional evaluation and care with diagnostic cardiac catheterization with respect to the risk and benefits were discussed with her. At the moment she states that she is opting for conservative medical management. 2. Nonsustained VT She did have one 5 beat episode appearing compatible with a nonsustained VT. She will continue medical therapy. She will be placed on beta-jessica therapy as tolerated. 2. Hypotension She has been hypotensive. Her blood pressures have improved overall. 3. Hypertension She apparently has a history of hypertension has been on antihypertensive medications. They will be on hold at this time pending further evaluation care. 4. Hyperlipidemia She will continue risk factor evaluation care as deemed appropriate. 5. CVA She does have a history of a remote CVA. This may play a role into how aggressive the patient wants to be with cardiovascular evaluation care as if her lifestyle/quality of life is sedentary, etc., then she may not want to pursue additional invasive evaluation, etc. This note was generated using a voice recognition system and there may be incorrect words, spelling or punctuation that were not noted when reviewing the office note prior to saving.
[2020-08-17] MEDS: Clopidogrel Bisulfate 75 MG Tablet PO (10:57)
[2020-08-17] MEDS: Metoprolol Tartrate 25 MG Tablet 12.5 MG PO ×2 (11:01→22:05)
[2020-08-17] MEDS: Aspirin E.C. 81 MG Tablet PO (11:02)
[2020-08-17] MEDS: Pantoprazole Sodium 20 MG Tablet PO (11:02)
[2020-08-17] MEDS: Ceftriaxone 1 GM/50 ML BAG IV (11:02)
[2020-08-17 12:45] LABS: Bedside Glucose 132 mg/dL (70-110)
--- NOTE | 2020-08-17 12:56 | NURSING ---
spoke with daughter adenike and updated on care and transfer to [facility]. no questions voiced. pt transferred to [facility] via bed and staff.
--- NOTE | 2020-08-17 15:04 | NURSING ---
lab notified to draw 1400 PTT
--- NOTE | 2020-08-17 15:33 | NURSING ---
spoke with lab again, they are on their way to draw 1400 PTT
[2020-08-17 15:57] LABS: Partial Thromboplast Time 43.3 Seconds (24.1-36.2)
[2020-08-17] MEDS: HEPARIN/D5w 25,000 UNITS 25,000 UNITS/250 ML IV.SOLN. 7 UNITS IV (16:13)
[2020-08-17] MEDS: Heparin Injection (Vial) 5,000 UNIT/ML VIAL IV (16:15)
[2020-08-17 16:45] LABS: Bedside Glucose 106 mg/dL (70-110)
--- NOTE | 2020-08-17 18:03 | NURSING ---
unable to pull k+ 40 out of accudose for pt administration-it has not been verified
[2020-08-17] MEDS: Atorvastatin Calcium 40 MG Tablet PO (22:00)
[2020-08-17 22:15] LABS: Bedside Glucose 131 mg/dL (70-110)
[2020-08-17 22:42] LABS: Partial Thromboplast Time 56.8 Seconds (24.1-36.2)
[2020-08-18] VITALS (13 sets, daily range): BP systolic 134–162; BP diastolic 74–94; PULSE 72–105; RESP 16–18; TEMP 36.6–37.4; O2SAT 97–100
[2020-08-18] MEDS: Dextrose 5%-Lactated Ringers 1,000 ML 125 ML IV ×2 (00:59→09:05)
[2020-08-18 05:09] LABS: Partial Thromboplast Time 60.6 Seconds (24.1-36.2)
[2020-08-18 06:46] LABS: Bedside Glucose 127 mg/dL (70-110)
--- NOTE | 2020-08-18 08:51 | PCM.PN.INT ---
Subjective: Patient transported out of the intensive care unit yesterday. No issues were reported overnight. Patient reports she feels subjectively improved compared to previous. General: Alert, Cooperative, No apparent distress, - - Obese. HEENT: Atraumatic, PERRLA, EOMI, Normocephalic, - - No scleral icterus or injection noted Oral: Moist Mucosa, No Gingival or Mucosal Lesions/ Ulcerations Neck: Supple, No JVD, No Nodes, Trachea Midline Lungs: No rhonchi, No wheeze, No rales, Diminished, - - Symmetric expansion. No dullness to percussion Cardiovascular: Normal S1, Normal S2, No murmurs, Irregular Rate, No rub noted, No Gallop Abdomen: Bowel Sounds Present, Soft, Non Tender, Non-Distended, Obese Extremities: No clubbing, No cyanosis, Edema Skin: No rashes, No breakdown Musculoskeletal: No Tenderness to Palpation of Joints or Extremities Lymphatic: No Cervical, Supraclavicular, or Inguinal Adenopathy Neurological: Neuro grossly intact - Consistent with previous documentation Psych/Mental Status: Flat Affect Vital Signs Temp Pulse Resp BP Pulse Ox 36.9 C 84 17 134/76 H 98 08/18/20 02:30 08/18/20 07:59 08/18/20 02:30 08/18/20 02:30 08/18/20 07:00 Oxygen Delivery Method Room Air Weight: 105.1 kg Body Mass Index (BMI) 35.7 Finger Stick Blood Glucose 123 Intake and Output for Last 24 Hours 08/16/20 08/17/20 08/18/20 23:59 23:59 23:59 Intake Total 4225.35 / 4225.35 3204.00 / 3219.00 277.17 / 277.17 Output Total 1235 / 1235 725 / 1325 1200 / 1200 Balance 2990.35 / 2990.35 2479.00 / 1894.00 -922.83 / -922.83 Labs (Last 48 Hours) 08/16/20 08/16/20 08/16/20 12:10 16:55 18:17 WBC RBC Hgb Hct MCV MCH MCHC RDW Std Deviation RDW Coeff of Nely Plt Count MPV Immature Gran % (Auto) Neut % (Auto) Lymph % (Auto) [place] % (Auto) Eos % (Auto) Baso % (Auto) Absolute Neuts (auto) Absolute Lymphs (auto) Total Counted Neutrophils % (Manual) Band Neutrophils % Lymphocytes % (Manual) Monocytes % (Manual) Eosinophils % (Manual) Nucleated RBC % Diff Path Review Platelet Estimate RBC Morphology APTT 153.3 H* Sodium Potassium Chloride Carbon Dioxide Anion Gap BUN Creatinine Estim Creat Clear Calc Est GFR (MDRD) Af Amer Est GFR (MDRD) Non-Af BUN/Creatinine Ratio Glucose Calcium Magnesium POC Glucose 138 H 66 L 08/16/20 08/16/20 08/17/20 20:13 22:19 01:42 WBC RBC Hgb Hct MCV MCH MCHC RDW Std Deviation RDW Coeff of Nely Plt Count MPV Immature Gran % (Auto) Neut % (Auto) Lymph % (Auto) [place] % (Auto) Eos % (Auto) Baso % (Auto) Absolute Neuts (auto) Absolute Lymphs (auto) Total Counted Neutrophils % (Manual) Band Neutrophils % Lymphocytes % (Manual) Monocytes % (Manual) Eosinophils % (Manual) Nucleated RBC % Diff Path Review Platelet Estimate RBC Morphology APTT 71.2 H Sodium Potassium Chloride Carbon Dioxide Anion Gap BUN Creatinine Estim Creat Clear Calc Est GFR (MDRD) Af Amer Est GFR (MDRD) Non-Af BUN/Creatinine Ratio Glucose Calcium Magnesium POC Glucose 149 H 166 H 08/17/20 08/17/20 08/17/20 03:27 04:10 04:10 WBC 27.8 H RBC 3.33 L Hgb 8.7 L Hct 28.6 L MCV 85.9 D MCH 26.1 L MCHC 30.4 L D RDW Std Deviation 48.1 H RDW Coeff of Nely 15.0 H Plt Count 134 L MPV 10.7 Immature Gran % (Auto) MARKETING PROGRAM COORDINATOR Neut % (Auto) MARKETING PROGRAM COORDINATOR Lymph % (Auto) MARKETING PROGRAM COORDINATOR [place] % (Auto) MARKETING PROGRAM COORDINATOR Eos % (Auto) MARKETING PROGRAM COORDINATOR Baso % (Auto) MARKETING PROGRAM COORDINATOR Absolute Neuts (auto) 23.1 H Absolute Lymphs (auto) 3.89 Total Counted 100 Neutrophils % (Manual) 81 H Band Neutrophils % 2 Lymphocytes % (Manual) 14 L Monocytes % (Manual) 2 Eosinophils % (Manual) 1 Nucleated RBC % 0 Diff Path Review May foll Platelet Estimate ADEQUATE RBC Morphology NORM C+C APTT Sodium 146 H Potassium 3.4 L Chloride 117 H Carbon Dioxide 20.0 L Anion Gap 9 BUN 41 H Creatinine 1.33 H Estim Creat Clear Calc 37.37 Est GFR (MDRD) Af Amer 51 L Est GFR (MDRD) Non-Af 42 L BUN/Creatinine Ratio 30.8 H Glucose 96 Calcium 8.2 L Magnesium POC Glucose 101 08/17/20 08/17/20 08/17/20 06:42 08:12 12:39 WBC RBC Hgb Hct MCV MCH MCHC RDW Std Deviation RDW Coeff of Nely Plt Count MPV Immature Gran % (Auto) Neut % (Auto) Lymph % (Auto) [place] % (Auto) Eos % (Auto) Baso % (Auto) Absolute Neuts (auto) Absolute Lymphs (auto) Total Counted Neutrophils % (Manual) Band Neutrophils % Lymphocytes % (Manual) Monocytes % (Manual) Eosinophils % (Manual) Nucleated RBC % Diff Path Review Platelet Estimate RBC Morphology APTT 61.2 H Sodium Potassium Chloride Carbon Dioxide Anion Gap BUN Creatinine Estim Creat Clear Calc Est GFR (MDRD) Af Amer Est GFR (MDRD) Non-Af BUN/Creatinine Ratio Glucose Calcium Magnesium POC Glucose 97 132 H 08/17/20 08/17/20 08/17/20 15:25 16:20 21:58 WBC RBC Hgb Hct MCV MCH MCHC RDW Std Deviation RDW Coeff of Nely Plt Count MPV Immature Gran % (Auto) Neut % (Auto) Lymph % (Auto) [place] % (Auto) Eos % (Auto) Baso % (Auto) Absolute Neuts (auto) Absolute Lymphs (auto) Total Counted Neutrophils % (Manual) Band Neutrophils % Lymphocytes % (Manual) Monocytes % (Manual) Eosinophils % (Manual) Nucleated RBC % Diff Path Review Platelet Estimate RBC Morphology APTT 43.3 H Sodium Potassium Chloride Carbon Dioxide Anion Gap BUN Creatinine Estim Creat Clear Calc Est GFR (MDRD) Af Amer Est GFR (MDRD) Non-Af BUN/Creatinine Ratio Glucose Calcium Magnesium POC Glucose 106 131 H 08/17/20 08/18/20 08/18/20 22:15 04:44 04:44 WBC RBC Hgb Hct MCV MCH MCHC RDW Std Deviation RDW Coeff of Nely Plt Count MPV Immature Gran % (Auto) Neut % (Auto) Lymph % (Auto) [place] % (Auto) Eos % (Auto) Baso % (Auto) Absolute Neuts (auto) Absolute Lymphs (auto) Total Counted Neutrophils % (Manual) Band Neutrophils % Lymphocytes % (Manual) Monocytes % (Manual) Eosinophils % (Manual) Nucleated RBC % Diff Path Review Platelet Estimate RBC Morphology APTT 56.8 H 60.6 H Sodium Potassium Chloride Carbon Dioxide Anion Gap BUN Creatinine Estim Creat Clear Calc Est GFR (MDRD) Af Amer Est GFR (MDRD) Non-Af BUN/Creatinine Ratio Glucose Calcium Magnesium 2.0 POC Glucose 08/18/20 06:41 WBC RBC Hgb Hct MCV MCH MCHC RDW Std Deviation RDW Coeff of Nely Plt Count MPV Immature Gran % (Auto) Neut % (Auto) Lymph % (Auto) [place] % (Auto) Eos % (Auto) Baso % (Auto) Absolute Neuts (auto) Absolute Lymphs (auto) Total Counted Neutrophils % (Manual) Band Neutrophils % Lymphocytes % (Manual) Monocytes % (Manual) Eosinophils % (Manual) Nucleated RBC % Diff Path Review Platelet Estimate RBC Morphology APTT Sodium Potassium Chloride Carbon Dioxide Anion Gap BUN Creatinine Estim Creat Clear Calc Est GFR (MDRD) Af Amer Est GFR (MDRD) Non-Af BUN/Creatinine Ratio Glucose Calcium Magnesium POC Glucose 127 H Microbiology 08/15/20 14:00 Urine, Catheterized Urine Culture - Final Escherichia coli 08/15/20 13:45 Blood Culture (Wb) - Left Wrist Blood Culture - Preliminary Escherichia coli 08/17/20 13:00 Stool Stool Occult Blood (RONNIE) - Final 08/15/20 13:25 Blood Culture (Wb) - No Site/Description Given Blood Culture - Preliminary No growth in 48 hours. Medical Necessity - Tobacco Use Smoking Status: Unknown if ever smoked Tobacco Use: - - Unknown due to patient confusion Assessment/Plan All Active Problems UTI (urinary tract infection) (Acute) Severe sepsis (Acute) NSTEMI (non-ST elevated myocardial infarction) (Acute) RECOMMENDATIONS: 1. Continue empiric antimicrobials. 2. Encourage incentive spirometer use and mobilize patient as tolerated. 3. Additional work-up per cardiology recommendations. 4. Patient is currently hemodynamically stable on room room air. Will sign off from a critical care perspective IMPRESSIONS: 1. Severe sepsis secondary to E. coli UTI Patient is growing E. coli in both the urine and blood. Sensitivities are currently pending. Patient has been hemodynamically stable on room air since transfer from the intensive care unit. Will sign off from a critical care perspective. Please call if there are any further concerns. 2. Encephalopathy Improved. Likely metabolic in etiology and related to underlying infectious process. As noted above, we will continue current supportive measures and treat underlying infection as indicated. 3. Non-ST segment elevation [place] Suspect likely secondary to demand ischemia in the setting of #1. Cardiology is currently following. Echocardiogram was unrevealing. Defer to cardiology for additional recommendations. 4. Acute kidney injury Improving. Likely prerenal in etiology. Continue to monitor urine output for now. No current indication for renal replacement therapy. 5. Elevated transaminases Unclear chronicity and etiology. Liver ultrasound was unremarkable. 6. Hypertension/hyperlipidemia/diabetes mellitus/GERD/history of CVA Complicates care, management, recovery and prognosis. Continue to hold antihypertensives. Inpatient E&M: 80621 Subs Hosp L2
[2020-08-18] MEDS: Acetaminophen 325 MG Tablet 650 MG PO (09:20)
--- NOTE | 2020-08-18 09:37 | PCM.PN.CARD ---
Subjectve: The patient remains she has been for most of the time, in bed and sleeping. She does arouse to verbal stimuli. She denies any acute symptoms. Objective: Vital Signs Temp Pulse Resp BP Pulse Ox 98.5 F 84 16 153/74 H 97 08/18/20 07:00 08/18/20 07:59 08/18/20 07:00 08/18/20 07:00 08/18/20 07:00 Oxygen Delivery Method Room Air Weight: 231 lb 11.293 oz Body Mass Index (BMI) 35.7 Finger Stick Blood Glucose 123 Intake and Output for Last 24 Hours 08/16/20 08/17/20 08/18/20 23:59 23:59 23:59 Intake Total 4225.35 / 4225.35 3204.00 / 3219.00 1277.17 / 1277.17 Output Total 1235 / 1235 725 / 1325 1200 / 1200 Balance 2990.35 / 2990.35 2479.00 / 1894.00 77.17 / 77.17 General: No Acute Distress, Obese HEENT: Atraumatic, Normocephalic, PERRL, EOMI, Sclera Non Icteric Neck: No JVD Lungs: Clear to auscultation Cardiovascular: Regular Rhythm, Normal S1, Normal S2 Abdomen: Bowel Sounds Present, Soft Extremities: No edema Psych/Mental Status: Flat Affect 08/17/20 15:25: APTT 43.3 H 08/17/20 22:15: APTT 56.8 H 08/18/20 04:44: Magnesium 2.0 08/18/20 04:44: APTT 60.6 H Rhythm: Sinus rhythm Medical Necessity - Tobacco Use Smoking Status: Unknown if ever smoked Tobacco Use: - - Unknown due to patient confusion Assessment/Plan 1. Non-ST segment elevation TN The patient does have abnormal cardiac enzymes. This is being reported in the setting of urosepsis. Thus it is unclear whether this is a type II event secondary to supply demand mismatch versus undiagnosed CAD with a type I event. The present time she appears to be without any acute symptoms. Her ECG demonstrates no acute changes. She will be monitored. Her troponin I levels have decreased. The cardiovascular concerns were discussed with her. Additional evaluation and care with diagnostic cardiac catheterization with respect to the risk and benefits were discussed with her. At the moment she states that she is opting for conservative medical management. 2. Nonsustained VT She did have one 5 beat episode appearing compatible with a nonsustained VT. She will continue medical therapy. She will be placed on beta-jessica therapy as tolerated. Her dose is being increased as it appears her heart rate and blood pressure can tolerate this at this time. 2. Hypotension She has been hypotensive. Her blood pressures have improved overall. 3. Hypertension She apparently has a history of hypertension has been on antihypertensive medications. Her blood pressure has been improving she may need to reinitiate antihypertensive therapy as she is able. 4. Hyperlipidemia She will continue risk factor evaluation care as deemed appropriate. 5. CVA She does have a history of a remote CVA. This may play a role into how aggressive the patient wants to be with cardiovascular evaluation care as if her lifestyle/quality of life is sedentary, etc., then she may not want to pursue additional invasive evaluation, etc., as she has noted above. This note was generated using a voice recognition system and there may be incorrect words, spelling or punctuation that were not noted when reviewing the office note prior to saving.
--- NOTE | 2020-08-18 11:15 | CASEMGMT ---
LENA faxed updates to [facility] for patient. Ara [employer]
[2020-08-18] MEDS: Aspirin 81 MG TAB.CHEW PO (11:29)
[2020-08-18] MEDS: Metoprolol Tartrate 25 MG Tablet PO ×2 (11:29→21:41)
[2020-08-18] MEDS: Pantoprazole Sodium 20 MG Tablet PO (11:29)
[2020-08-18] MEDS: Clopidogrel Bisulfate 75 MG Tablet PO (11:30)
[2020-08-18 12:25] LABS: Bedside Glucose 159 mg/dL (70-110)
[2020-08-18] MEDS: Ceftriaxone 1 GM/50 ML BAG IV (12:34)
[2020-08-18] MEDS: 0.9% Saline Lock 10 ML Syringe IV (12:39)
[2020-08-18] MEDS: Insulin Lispro 100 UNIT/ML INSULN.PEN SC ×2 (12:45→17:07)
[2020-08-18] MEDS: HEPARIN/D5w 25,000 UNITS 25,000 UNITS/250 ML IV.SOLN. 7 UNITS IV (12:53)
[2020-08-18 14:00] LABS: Pathologist Review Reviewed
[2020-08-18 14:04] LABS: Pathologist Review Reviewed
[2020-08-18 15:50] LABS: Probe Check PASS; Specimen Processing Control PASS
[2020-08-18 17:01] LABS: Bedside Glucose 158 mg/dL (70-110)
--- NOTE | 2020-08-18 18:10 | PN_ITS ---
Patient Problems: Active and Suspected Problems UTI (urinary tract infection) (Acute) Severe sepsis (Acute) NSTEMI (non-ST elevated myocardial infarction) (Acute) Reason for Visit: Follow-up on acute metabolic encephalopathy/severe sepsis/non-STEMI/UTI Subjective: Patient was seen and examined. She is alert oriented x3. Denied any new complaints. Discharge planning ongoing [facility]. Objective: Physical exam: General: Alert, Cooperative, No apparent distress, Confused HEENT: Atraumatic, PERRLA, EOMI, Normocephalic Oral: Dry Mucosa Neck: Supple, No JVD, Negative Carotid Bruits Lungs: Clear to auscultation, Normal air movement, No rhonchi, No wheeze, No rales, Tachypneic Cardiovascular: Normal S1, Normal S2, No murmurs, Tachycardic Abdomen: Bowel Sounds Present, Soft, Non Tender, Non-Distended, No Hepato- splenomegaly Extremities: No clubbing, No cyanosis, Capillary Refill Less than 3 Seconds, - - bilateral 1+ pitting edema Skin: No rashes, No breakdown Musculoskeletal: No Tenderness to Palpation of Joints or Extremities Lymphatic: No Cervical, Supraclavicular, or Inguinal Adenopathy Neurological: Cranial nerves II-XII grossly intact Psych/Mental Status: Normal Affect, Appropriate Vitals/I&O's: Vital Signs Temp Pulse Resp BP Pulse Ox 99.2 F H 85 18 135/80 H 98 08/18/20 16:39 08/18/20 16:39 08/18/20 16:39 08/18/20 16:39 08/18/20 16:39 Oxygen Delivery Method Room Air Weight: 105.1 kg Body Mass Index (BMI) 35.7 Finger Stick Blood Glucose 123 Intake and Output for Last 24 Hours 08/16/20 08/17/20 08/18/20 23:59 23:59 23:59 Intake Total 4225.35 / 4225.35 3204.00 / 3219.00 1834.10 / 1834.10 Output Total 1235 / 1235 725 / 1325 2600 / 2600 Balance 2990.35 / 2990.35 2479.00 / 1894.00 -765.90 / -765.90 Microbiology Past 72 Hours 08/15/20 14:00 Urine, Catheterized Urine Culture - Final Escherichia coli 08/15/20 13:45 Blood Culture (Wb) - Left Wrist Blood Culture - Preliminary Escherichia coli 08/17/20 13:00 Stool Stool Occult Blood (RONNIE) - Final 08/15/20 13:25 Blood Culture (Wb) - No Site/Description Given Blood Culture - Preliminary No growth in 48 hours. Laboratory Results 08/16/20 05:20: Diff Path Review Reviewed 08/17/20 04:10: Diff Path Review Reviewed 08/17/20 21:58: POC Glucose 131 H 08/17/20 22:15: APTT 56.8 H 08/18/20 04:44: Magnesium 2.0 08/18/20 04:44: APTT 60.6 H 08/18/20 06:41: POC Glucose 127 H 08/18/20 11:45: POC Glucose 159 H 08/18/20 12:45: COVID-19 (MIKE) Negative 08/18/20 16:36: POC Glucose 158 H Current Medications Acetaminophen (Acetaminophen 325 Mg Tablet) 650 mg PO Q6H PRN PRN PRN Reason: Pain Score 1-10/Temp > 100.7 F Last Admin: 08/18/20 09:20 Dose: 650 mg Documented by: Albuterol Sulfate (Albuterol 2.5 Mg/3 Ml Vial.Neb.) 2.5 mg INHALATION Q2H PRN PRN PRN Reason: Dyspnea, wheezing Aspirin (Aspirin 81 Mg Tab.Chew) 81 mg PO DAILY@0800 [facility] Last Admin: 08/18/20 11:29 Dose: 81 mg Documented by: Atorvastatin Calcium (Atorvastatin Calcium 40 Mg Tablet) 40 mg PO QHS [facility] Last Admin: 08/17/20 22:00 Dose: 40 mg Documented by: Clopidogrel Bisulfate (Clopidogrel Bisulfate 75 Mg Tablet) 75 mg PO DAILY [facility] Last Admin: 08/18/20 11:30 Dose: 75 mg Documented by: Heparin Sodium (Porcine) (Heparin Injection (Vial) 5,000 Unit/Ml Vial) 0 unit IV UD PRN; Protocol PRN Reason: dose adjustment Last Admin: 08/17/20 16:15 Dose: 1,000 unit Documented by: Heparin Sodium/Dextrose () 25,000 units in 250 mls @ 15 mls/hr IV .[id number] [facility]; Protocol Last Admin: 08/18/20 12:53 Dose: 700 units/hr, 7 mls/hr Documented by: Ceftriaxone Sodium (Rocephin) 1 gm in 50 mls @ 100 mls/hr IV Q24 [facility] Stop: 08/23/20 10:01 Last Infusion: 08/18/20 13:04 Dose: Infused Documented by: Insulin Glargine (Insulin Glargine 100 Units/Ml Pen) 40 units SC QHS [facility] Last Admin: 08/17/20 22:05 Dose: Not Given Documented by: Insulin Human Lispro (Insulin Lispro 100 Unit/Ml Insuln.Pen) 0 unit SC ACHS [facility]; Protocol Last Admin: 08/18/20 17:07 Dose: 1 units Documented by: Iopamidol (Contrast Allergy Safety Check) 0 ml IV X1 [facility] Last Admin: 08/18/20 12:59 Dose: Not Given Documented by: Metoprolol Tartrate (Metoprolol Tartrate 25 Mg Tablet) 25 mg PO BID [facility] Last Admin: 08/18/20 11:29 Dose: 25 mg Documented by: Pantoprazole Sodium (Pantoprazole Sodium 20 Mg Tablet) 20 mg PO DAILY [facility] Last Admin: 08/18/20 11:29 Dose: 20 mg Documented by: Sodium Chloride (0.9% Saline Lock 10 Ml Syringe) 10 - 40 ml IV UD PRN PRN Reason: SALINE FLUSH Last Admin: 08/18/20 12:39 Dose: 10 ml Documented by: STROKE Vital Signs/Narrative: Vital Signs Temp Pulse Resp BP Pulse Ox 08/18/20 16:39 99.2 F H 85 18 135/80 H 98 08/18/20 15:55 72 Medical Necessity - Tobacco Use Smoking Status: Unknown if ever smoked Tobacco Use: - - Unknown due to patient confusion Assessment/Plan All Active Problems UTI (urinary tract infection) (Acute) Severe sepsis (Acute) NSTEMI (non-ST elevated myocardial infarction) (Acute) 1. Acute metabolic encephalopathy secondary to severe sepsis, resolved, Patient appears to be at baseline 2. Severe Sepsis secondary to E. coli UTI, improving Continue on ceftriaxone Will discontinue IV fluids 3. Acute non-STEMI likely secondary to demand ischemia from #2 Cardiology following, on heparin drip as well as Plavix and aspirin 4. Hypokalemia, replace, recheck in a.m. 5. Acute kidney injury, likely prerenal from #2 Admitting creatinine was 2.3, improved to 1.33 Repeat renal panel in am 6. Hypotension, blood pressure much improved, Will resume patient's amlodipine Continue to hold lisinopril on account of acute kidney injury Continue to monitor blood pressure 7. Type II DM, blood sugars are controlled Continue on current Lantus as well as blood glucose checks with insulin sliding scale 8. History of CVA, continue on aspirin and statin 9. DVT prophylaxis?on heparin drip Inpatient E&M: 15275 Subs Hosp L2
[2020-08-18] MEDS: Atorvastatin Calcium 40 MG Tablet PO (21:41)
[2020-08-18 22:05] LABS: Bedside Glucose 128 mg/dL (70-110)
[2020-08-19] VITALS (11 sets, daily range): BP systolic 156–189; BP diastolic 72–92; PULSE 70–92; RESP 16–18; TEMP 36.5–37.1; O2SAT 97–100
[2020-08-19 06:39] LABS: Absolute Lymphocyte Count 3.41 X10^3/uL (0.83-4.51); Basophil# 0.03 X10^3/uL; Basophil% 0.3 % (0-1); Eosinophil# 0.29 X10^3/uL; Hematocrit 30.1 % (37-47); Hemoglobin 8.9 g/dL (12.0-15.0); Lymphocyte # 3.41 X10^3/ul (4.0); Lymphocyte % 35.1 % (19-41); Mean Corp Hgb Conc 29.6 g/dL (32-36); Mean Corpuscular Hgb 25.9 pg (27.0-32.0); Mean Corpuscular Volume 87.5 fL (81-99); Mean Platelet Vol. 10.8 fl (6.2-12.0); Monocyte# 0.87 X10^3/uL; NRBC Flagged by Analyzer 0 % (0-5); Neutrophil # 5.04 X10^3/uL (2.7-7.7); Neutrophil % 51.9 % (47-70); Platelet Count 153 K/mm3 (150-450); RBC Distribution Width SD 48.5 fl (35.1-43.9); Red Blood Count 3.44 M/mm3 (4.2-5.4); White Blood Count 9.7 K/mm3 (4.4-11.0)
[2020-08-19 07:05] LABS: ALB/GLOB Ratio 0.5 RATIO (0.9-2.4); AST(SGOT) 30 U/L (15-37); Alanine Aminotransfer ALT/SGPT 72 U/L (13-56); Albumin, Serum 2.2 g/dL (3.2-5.0); Alkaline Phosphatase 137 U/L (45-117); Anion Gap 7 (5-15); BUN 10 mg/dL (7-18); BUN/Creat Ratio 15.4 RATIO (10-20); Calcium,Total 9.1 mg/dL (8.5-10.1); Chloride 119 mmol/L (98-107); Creatinine, Serum 0.65 mg/dL (0.55-1.02); EST Glomerular Filtration Rate 96 mL/min (>60); Est Glom Filt Rate - Afr Amer 116 mL/min (>60); Globulin 4.1 g/dL (2.2-4.2); Glucose 99 mg/dL (74-106); Magnesium 1.7 mg/dL (1.6-2.6); Potassium 3.6 mmol/L (3.5-5.1); Protein, Total 6.3 g/dL (6.4-8.2); Sodium Level 149 mmol/L (136-145)
[2020-08-19] MEDS: Heparin Injection (Vial) 5,000 UNIT/ML VIAL IV (07:33)
[2020-08-19 07:50] LABS: Bedside Glucose 105 mg/dL (70-110)
[2020-08-19] MEDS: Aspirin 81 MG TAB.CHEW PO (08:27)
[2020-08-19] MEDS: 0.9% Saline Lock 10 ML Syringe IV ×3 (08:34→15:02)
[2020-08-19] MEDS: Pantoprazole Sodium 20 MG Tablet PO (10:33)
[2020-08-19] MEDS: Metoprolol Tartrate 25 MG Tablet PO (10:33)
[2020-08-19] MEDS: Clopidogrel Bisulfate 75 MG Tablet PO (10:33)
--- NOTE | 2020-08-19 12:40 | TREXTCA.CO_ITS ---
- Diet 08/16/20 03:10 Diet: Cardiac: Calorie-Controlled Food consistency:: Pureed Liquid Consistency:: Regular/Thin Is pt able to select menu?: No Diet Comments: 1:1 supervised, meds crushed in purees How many daily calories?: 1800 calorie - Routine Orders/Code Status Enema Type: Fleetz Enema Frequency: Daily PRN Suppository Type: Dulcolax 10mg Suppository Frequency: Daily PRN Routine Lab Work: CBC, BMP, - - Weekly Code Status: DNRCC-A - No intubation - Suggestions for Active Care Change Position every (hours): 2 Times a day to sit in chair: 3 - Therapies Physical Therapy: Eval and Treat Occupational Therapy: Eval and Treat Speech Therapy: Eval and Treat - Problem/Diagnosis (1) Type 2 diabetes mellitus Status: Chronic (2) History of CVA (cerebrovascular accident) Status: Chronic Comment: Chronic left facial droop (3) Hypertension Status: Chronic (4) Hyperlipemia Status: Chronic (5) Iron deficiency anemia Status: Chronic (6) UTI (urinary tract infection) Status: Acute (7) Severe sepsis Status: Acute (8) NSTEMI (non-ST elevated myocardial infarction) Status: Acute - Allergies/Procedures Done in Hospital Allergies/Adverse Reactions: Allergies tramadol [From [facility]] Adverse Reaction (Verified 08/15/20 17:32) Nausea Procedures: 2-D Echocardiogram - Type of Care/Length of Stay Estimated LOS: More Than 30 Days Type of Care Needed: Skilled Rehab Potential: Fair Prognosis: Fair - Additional Orders/Day of Discharge H&P will serve as current which was dated: 08/15/20 Day of Discharge: 08/19/20 - Dietary and Speech Recommendations Dietitian Recommendations/Changes: Continue Cardiac:1800 lissette diet w/ FR as indicated and ensure pudding w/ meals for additional lissette/pro if consumed. Speech Linguistic Eval Summary: Pt able to provide full name and with very slow processing time. Pt communicated in slow, limited manner. Pt with history of CVA. Pt stated she has been treated by a speech therapist about a month a go but couldn't tell this DOCK BOSS what she was working on. Pt able to follow single step directions with repetition. Will recommend further cognitive- linguistic assessments as appropriate. - Follow Up Care Primary Care Physician: Ant Flores MD [Primary Care Provider] - Please follow up with your Primary Care Physician in: 1 Week Please Follow Up With: Ant Rivera MD When: 2 Weeks, may see BLOCK TESTER/PA
--- NOTE | 2020-08-19 12:48 | PCM.DC.SUM ---
<Leandra Hidalgo COMMERCIAL HORTICULTURE INSTRUCTOR - Last Filed: 08/19/20 13:00> Discharge Date and Diagnosis - Problem List Patient Problems: Active and Suspected Problems UTI (urinary tract infection) (Acute) Severe sepsis (Acute) NSTEMI (non-ST elevated myocardial infarction) (Acute) Date of Admission: 08/15/20 Date of Discharge: 08/19/20 - Primary Discharge Diagnosis Acute Problems: Active Problems 1. Severe sepsis secondary to E. coli UTI with associated E. coli bacteremia 2. NSTEMI 3. Acute metabolic encephalopathy secondary to severe sepsis 4. Acute kidney injury 5. Type 2 diabetes mellitus 6. Hypertension 7. Hyperlipidemia 8. GERD-continue PPI. 9. History of CVA-chronic right facial droop. 10. Elevated liver enzymes - Secondary Discharge Diagnosis Chronic Problems: Chronic Problems Type 2 diabetes mellitus (Chronic) History of CVA (cerebrovascular accident) (Chronic) Chronic left facial droop Hypertension (Chronic) Hyperlipemia (Chronic) Iron deficiency anemia (Chronic) Hospital Course and Treatment Imaging Results: Diagnostic Data Brain CT 08/15/20 12:57 IMPRESSION: Chronic involutional changes of the brain. Small old lacunar infarcts in the basal ganglia bilaterally as well as the left thalamus. N.B. : The above information has been verbally conveyed by Eyal Campoverde to JULIANO West on 08/15/2020 13:20:33 (ET). Electronically Signed: Eyal Campoverde, at 13:21 EDT , Service support , ADDENDUM: 08/15/20 1328 IMPRESSION: Chronic involutional changes of the brain. Small old lacunar infarcts in the basal ganglia bilaterally as well as the left thalamus. N.B. : The above information has been verbally conveyed by Eyal Campoverde to JULIANO West on 08/15/2020 13:20:33 (ET). Electronically Signed: Eyal Campoverde, at 13:21 EDT , Service support , Chest X-Ray 08/15/20 14:40 IMPRESSION: No acute abnormality is seen. Electronically Signed: Eyal Nirali, at 14:55 EDT , Service support , Liver Ultrasound 08/16/20 06:38 IMPRESSION: Normal ultrasound of the kidneys and urinary bladder. Electronically Signed: Klever Perdue MD at 9:29 EDT Tel , Service support , Dr. Rivera- Cardiology Dr. Kaur- Pulmonary medicine Operations: None Procedures: 2-D Echocardiogram Summary of Care Provided: The patient is a 69 year old F admitted 08/15/2020 due to unresponsiveness at [facility]. 1. Severe sepsis secondary to E. coli UTI with associated E. coli bacteremia-patient is now hemodynamically stable. IV Rocephin discontinued. Transition to oral Omnicef to complete course of antibiotics. Follow-up with PCP in 1 week. 2. NSTEMI- Cardiology consulted. Echocardiogram demonstrates an EF of 65%. Cardiology discussed additional evaluation including cardiac catheterization however patient opted for conservative medical management. Continue aspirin, statin, Plavix, metoprolol. Outpatient follow-up with cardiology. 3. Acute metabolic encephalopathy secondary to severe sepsis-resolved. Patient baseline. 4. Acute kidney injury-acute kidney injury resolved with IV fluids. 5. Type 2 diabetes mellitus-continue home insulin regimen. 6. Hypertension-continue amlodipine, lisinopril, metoprolol. 7. Hyperlipidemia-continue statin. 8. GERD-continue PPI. 9. History of CVA-chronic right facial droop. Chronic dysphagia. Continue dietary modifications per speech therapy recommendations. Continue speech therapy consult at [facility]. 10. Elevated liver enzymes-unclear etiology. Liver ultrasound unremarkable. Trended down. General: Alert, no apparent distress HEENT: Atraumatic, PERRLA, EOMI, Normocephalic Oral: Moist mucosa Neck: Supple, No JVD, Negative Carotid Bruits Lungs: Clear to auscultation, Diminished Cardiovascular: Regular Rhythm, Normal S1, Normal S2 Abdomen: Bowel Sounds Present, Soft, Non Tender, Non-Distended, Obese Extremities: No clubbing, No cyanosis, Edema - Bilateral lower extremity Skin: No rashes, No breakdown Musculoskeletal: No Tenderness to Palpation of Joints or Extremities Neurological: Cranial nerves II-XII grossly intact, - - Chronic left facial droop Psych/Mental Status: Normal Affect Patient seen and examined prior to discharge. Physical assessment as noted above. Patient is stable for discharge with follow up recommendations as noted above. This patient was seen by AGUS Cespedes under the supervision of Dr. Stacy. Patient Problems: Active and Suspected Problems UTI (urinary tract infection) (Acute) Severe sepsis (Acute) NSTEMI (non-ST elevated myocardial infarction) (Acute) - Physical Exam Vitals/I&O's: Vital Signs Temp Pulse Resp BP Pulse Ox 97.8 F 87 18 187/90 H 97 08/19/20 12:38 08/19/20 12:38 08/19/20 12:38 08/19/20 12:38 08/19/20 12:38 Oxygen Delivery Method Room Air Weight: 231 lb 11.293 oz Body Mass Index (BMI) 35.7 Finger Stick Blood Glucose 123 Intake and Output for Last 24 Hours 08/17/20 08/18/20 08/19/20 23:59 23:59 23:59 Intake Total 3204.00 / 3219.00 2834.10 / 3234.10 530.32 / 530.32 Output Total 725 / 1325 2600 / 3350 1000 / 1000 Balance 2479.00 / 1894.00 234.10 / -115.90 -469.68 / -469.68 Microbiology Past 72 Hours 08/15/20 14:00 Urine, Catheterized Urine Culture - Final Escherichia coli 08/15/20 13:45 Blood Culture (Wb) - Left Wrist Blood Culture - Preliminary Escherichia coli 08/17/20 13:00 Stool Stool Occult Blood (RONNIE) - Final 08/15/20 13:25 Blood Culture (Wb) - No Site/Description Given Blood Culture - Preliminary No growth in 48 hours. Laboratory Results 08/16/20 05:20: Diff Path Review Reviewed 08/17/20 04:10: Diff Path Review Reviewed 08/18/20 12:45: COVID-19 (MIKE) Negative 08/18/20 16:36: POC Glucose 158 H 08/18/20 21:38: POC Glucose 128 H 08/19/20 06:20: APTT 45.0 H 08/19/20 06:20: WBC 9.7, RBC 3.44 L, Hgb 8.9 L, Hct 30.1 L, MCV 87.5, MCH 25.9 L, MCHC 29.6 L, RDW Std Deviation 48.5 H, RDW Coeff of Nely 15.0 H, Plt Count 153, MPV 10.8, Immature Gran % (Auto) 0.700, Neut % (Auto) 51.9, Lymph % (Auto) 35.1, [place] % (Auto) 9.0, Eos % (Auto) 3.0, Baso % (Auto) 0.3, Absolute Neuts (auto) 5.0, Absolute Lymphs (auto) 3.41, Nucleated RBC % 0 08/19/20 06:20: Sodium 149 H, Potassium 3.6, Chloride 119 H, Carbon Dioxide 23.0, Anion Gap 7, BUN 10, Creatinine 0.65, Estim Creat Clear Calc 49.70, Est GFR (MDRD) Af Amer 116, Est GFR (MDRD) Non-Af 96, BUN/Creatinine Ratio 15.4, Glucose 99, Calcium 9.1, Magnesium 1.7, Total Bilirubin 0.20, AST 30, ALT 72 H, Alkaline Phosphatase 137 H, Total Protein 6.3 L, Albumin 2.2 L, Globulin 4.1, Albumin/Globulin Ratio 0.5 L 08/19/20 07:36: POC Glucose 105 Current Medications Acetaminophen (Acetaminophen 325 Mg Tablet) 650 mg PO Q6H PRN PRN PRN Reason: Pain Score 1-10/Temp > 100.7 F Last Admin: 08/18/20 09:20 Dose: 650 mg Documented by: Albuterol Sulfate (Albuterol 2.5 Mg/3 Ml Vial.Neb.) 2.5 mg INHALATION Q2H PRN PRN PRN Reason: Dyspnea, wheezing Amlodipine Besylate (Amlodipine 10 Mg Tablet) 10 mg PO X1 ONE Stop: 08/19/20 13:01 Aspirin (Aspirin 81 Mg Tab.Chew) 81 mg PO DAILY@0800 [facility] Last Admin: 08/19/20 08:27 Dose: 81 mg Documented by: Atorvastatin Calcium (Atorvastatin Calcium 40 Mg Tablet) 40 mg PO QHS [facility] Last Admin: 08/18/20 21:41 Dose: 40 mg Documented by: Cefdinir (Cefdinir Susp 125 Mg/5 Ml Po.Syringe) 300 mg PO Q12 [facility] Clopidogrel Bisulfate (Clopidogrel Bisulfate 75 Mg Tablet) 75 mg PO DAILY [facility] Last Admin: 08/19/20 10:33 Dose: 75 mg Documented by: Heparin Sodium (Porcine) (Heparin Injection (Vial) 5,000 Unit/Ml Vial) 0 unit IV UD PRN; Protocol PRN Reason: dose adjustment Last Admin: 08/19/20 07:33 Dose: 1,000 unit Documented by: Insulin Glargine (Insulin Glargine 100 Units/Ml Pen) 40 units SC QHS [facility] Last Admin: 08/18/20 21:40 Dose: Not Given Documented by: Insulin Human Lispro (Insulin Lispro 100 Unit/Ml Insuln.Pen) 0 unit SC ACHS [facility]; Protocol Last Admin: 08/19/20 12:29 Dose: Not Given Documented by: Lisinopril (Lisinopril 5 Mg Tablet) 5 mg PO X1 ONE Stop: 08/19/20 13:01 Metoprolol Tartrate (Metoprolol Tartrate 25 Mg Tablet) 25 mg PO BID [facility] Last Admin: 08/19/20 10:33 Dose: 25 mg Documented by: Pantoprazole Sodium (Pantoprazole Sodium 20 Mg Tablet) 20 mg PO DAILY [facility] Last Admin: 08/19/20 10:33 Dose: 20 mg Documented by: Sodium Chloride (0.9% Saline Lock 10 Ml Syringe) 10 - 40 ml IV UD PRN PRN Reason: SALINE FLUSH Last Admin: 08/19/20 08:34 Dose: 10 ml Documented by: Home Medications: Medications to take at Discharge Acetaminophen [Tylenol] 1,000 mg PO BID 08/15/20 Amlodipine [Norvasc] 10 mg PO DAILY 08/15/20 Atorvastatin Calcium 40 mg PO QHS 08/15/20 Ferrous Sulfate [Ferosul] 325 mg PO DAILY 08/15/20 Insulin Aspart [Novolog Flexpen] 4 units SC TIDCM 08/15/20 Insulin Aspart [Novolog Flexpen] See Protocol SC BIDCM 08/15/20 Insulin Glargine,Hum.rec.anlog [Basaglar Kwikpen U-100] 40 unit SQ QHS 08/15/20 Lidocaine/Menthol [Icy Hot 4%-1% Patch] 1 ea TP Q12H 08/15/20 Lisinopril [Zestril] 5 mg PO DAILY 08/15/20 Aspirin [Aspirin, Baby] 81 mg PO DAILY@0800 tab.chew 08/19/20 Cefdinir Susp [Omnicef Susp] 300 mg PO Q12 po.syringe 08/19/20 Metoprolol Tartrate [Lopressor (beta jessica)] 25 mg PO BID tab 08/19/20 Omeprazole [Prilosec] 40 mg PO DAILY #0 08/19/20 Primary Care Physician: Ant Flores MD [Primary Care Provider] - Please follow up with your Primary Care Physician in: 1 Week Please Follow Up With: Ant Rivera MD When: 2 Weeks, may see COMMERCIAL HORTICULTURE INSTRUCTOR/PA Disposition: [facility] facility Minutes spent on discharge:: 35 Patient Condition:: Stable Medical Necessity - Tobacco Use Smoking Status: Unknown if ever smoked Tobacco Use: - - Unknown due to patient confusion Meaningful Use Info Meaningful Use Diagnoses (Choose all that apply): None applicable <Brandie Stacy - Last Filed: 08/19/20 18:03> Discharge Date and Diagnosis - Primary Discharge Diagnosis Acute Problems: Active Problems UTI (urinary tract infection) (Acute) Severe sepsis (Acute) NSTEMI (non-ST elevated myocardial infarction) (Acute) - Secondary Discharge Diagnosis Chronic Problems: Chronic Problems Type 2 diabetes mellitus (Chronic) History of CVA (cerebrovascular accident) (Chronic) Chronic left facial droop Hypertension (Chronic) Hyperlipemia (Chronic) Iron deficiency anemia (Chronic) Hospital Course and Treatment Summary of Care Provided: This patient was seen in conjunction with Leandra Hidalgo NP. I have independently interviewed and examined the patient and reviewed pertinent historical, laboratory, and other data. Please refer to her note for patient's presentation, findings, and recommendations. 69-year-old female, resident in a long-term who was found to be unresponsive and admitted to the hospital. Her management was that of severe sepsis/acute metabolic encephalopathy and acute non-STEMI. Cardiology was consulted, medical management was recommended as patient was not agreeable to further work-up. Patient was found to have acute E. coli UTI and severe sepsis. She continued to improve. Her mentation was at baseline at time of discharge. She was discharged on Omnicef. On the day of discharge, patient was seen and examined. Denied any new complaints. Physical Exam: Gen: Comfortable not pale, not jaundiced, alert oriented x3 CVS:HS I +II, regular, no murmurs RESP: Diminished at lung bases GI: BS present and normal, nontender, no palpable organs EXT: Bilateral pedal edema +1-2, multijoint deformities - Physical Exam Vitals/I&O's: Vital Signs Temp Pulse Resp BP Pulse Ox 98.2 F 79 18 160/72 H 100 08/19/20 15:12 08/19/20 15:12 08/19/20 15:12 08/19/20 15:12 08/19/20 15:12 Oxygen Delivery Method Room Air Weight: 105.1 kg Body Mass Index (BMI) 35.7 Finger Stick Blood Glucose 123 Intake and Output for Last 24 Hours 08/17/20 08/18/20 08/19/20 23:59 23:59 23:59 Intake Total 3204.00 / 3219.00 2834.10 / 3234.10 899.65 / 899.65 Output Total 725 / 1325 2600 / 3350 1700 / 1700 Balance 2479.00 / 1894.00 234.10 / -115.90 -800.35 / -800.35 Microbiology Past 72 Hours 08/15/20 14:00 Urine, Catheterized Urine Culture - Final Escherichia coli 08/15/20 13:45 Blood Culture (Wb) - Left Wrist Blood Culture - Preliminary Escherichia coli 08/17/20 13:00 Stool Stool Occult Blood (RONNIE) - Final 08/15/20 13:25 Blood Culture (Wb) - No Site/Description Given Blood Culture - Preliminary No growth in 48 hours. Laboratory Results 08/18/20 21:38: POC Glucose 128 H 08/19/20 06:20: APTT 45.0 H 08/19/20 06:20: WBC 9.7, RBC 3.44 L, Hgb 8.9 L, Hct 30.1 L, MCV 87.5, MCH 25.9 L, MCHC 29.6 L, RDW Std Deviation 48.5 H, RDW Coeff of Nely 15.0 H, Plt Count 153, MPV 10.8, Immature Gran % (Auto) 0.700, Neut % (Auto) 51.9, Lymph % (Auto) 35.1, [place] % (Auto) 9.0, Eos % (Auto) 3.0, Baso % (Auto) 0.3, Absolute Neuts (auto) 5.0, Absolute Lymphs (auto) 3.41, Nucleated RBC % 0 08/19/20 06:20: Sodium 149 H, Potassium 3.6, Chloride 119 H, Carbon Dioxide 23.0, Anion Gap 7, BUN 10, Creatinine 0.65, Estim Creat Clear Calc 49.70, Est GFR (MDRD) Af Amer 116, Est GFR (MDRD) Non-Af 96, BUN/Creatinine Ratio 15.4, Glucose 99, Calcium 9.1, Magnesium 1.7, Total Bilirubin 0.20, AST 30, ALT 72 H, Alkaline Phosphatase 137 H, Total Protein 6.3 L, Albumin 2.2 L, Globulin 4.1, Albumin/Globulin Ratio 0.5 L 08/19/20 07:36: POC Glucose 105 08/19/20 12:24: POC Glucose 117 H Inpatient E&M: 98149 Disch Hosp
[2020-08-19 13:15] LABS: Bedside Glucose 117 mg/dL (70-110)
--- NOTE | 2020-08-19 13:29 | CASEMGMT ---
Patient is ready for discharge back to [facility] today. LENA called [facility] and let her know. LENA faxed orders to [facility]. LENA called [facility] and arranged for patient to get picked up via cot at 330p. LENA notified RN, secretary office clerk, LEGAL SUPPORT ASSISTANT, and patient's daughter, Wes per patient's request. LENA also left a message for [facility] and called [facility] letting them know about d/c and picked edge sewing machine operator time. Plan: d/c back to [facility] under skilled level of care. She is a fpc resident of [facility]. [facility] transported her via cot. Ara BAKER MSW
[2020-08-19] MEDS: Cefdinir Susp 125 MG/5 ML PO.SYRINGE 300 MG PO (13:37)
[2020-08-19] MEDS: Lisinopril 5 MG Tablet PO (13:37)
[2020-08-19] MEDS: amLODIPine 10 MG Tablet PO (13:37)
--- NOTE | 2020-08-19 13:49 | PN.CARD_ITS ---
Subjectve: The patient was evaluated earlier this day. She appeared to be resting comfortably. Objective: Vital Signs Temp Pulse Resp BP Pulse Ox 97.8 F 87 18 187/90 H 97 08/19/20 12:38 08/19/20 12:38 08/19/20 12:38 08/19/20 12:38 08/19/20 12:38 Oxygen Delivery Method Room Air Weight: 231 lb 11.293 oz Body Mass Index (BMI) 35.7 Finger Stick Blood Glucose 123 Intake and Output for Last 24 Hours 08/17/20 08/18/20 08/19/20 23:59 23:59 23:59 Intake Total 3204.00 / 3219.00 2834.10 / 3234.10 880.32 / 880.32 Output Total 725 / 1325 2600 / 3350 1700 / 1700 Balance 2479.00 / 1894.00 234.10 / -115.90 -819.68 / -819.68 General: Awake, Cooperative, No Acute Distress, Obese HEENT: Atraumatic, Normocephalic, PERRL, EOMI, Sclera Non Icteric Neck: Supple, Good ROM, No JVD Lungs: Clear to auscultation Cardiovascular: Regular Rhythm, Normal S1, Normal S2 Abdomen: Bowel Sounds Present, Soft 08/19/20 06:20: APTT 45.0 H 08/19/20 06:20: WBC 9.7, RBC 3.44 L, Hgb 8.9 L, Hct 30.1 L, MCV 87.5, MCH 25.9 L , MCHC 29.6 L, Plt Count 153, MPV 10.8, Immature Gran % (Auto) 0.700, Neut % (Auto) 51.9, Lymph % (Auto) 35.1, [place] % (Auto) 9.0, Eos % (Auto) 3.0, Baso % (Auto) 0.3, Absolute Neuts (auto) 5.0, Nucleated RBC % 0 08/19/20 06:20: Sodium 149 H, Potassium 3.6, Chloride 119 H, Carbon Dioxide 23.0, Anion Gap 7, BUN 10, Creatinine 0.65, Est GFR (MDRD) Af Amer 116, Est GFR (MDRD) Non-Af 96, BUN/Creatinine Ratio 15.4, Glucose 99, Calcium 9.1, Magnesium 1.7, Total Bilirubin 0.20 Rhythm: Sinus rhythm Medical Necessity - Tobacco Use Smoking Status: Unknown if ever smoked Tobacco Use: - - Unknown due to patient confusion Assessment/Plan 1. Non-ST segment elevation NV The patient does have abnormal cardiac enzymes. This is being reported in the setting of urosepsis. Thus it is unclear whether this is a type II event secondary to supply demand mismatch versus undiagnosed CAD with a type I event. The present time she appears to be without any acute symptoms. Her ECG demonstrates no acute changes. Her troponin I levels have decreased. The cardiovascular concerns were discussed with her. Additional evaluation and care with diagnostic cardiac catheterization with respect to the risk and benefits were discussed with her. At the moment she states that she is opting for conservative medical management. 2. Nonsustained VT She did have one 5 beat episode appearing compatible with a nonsustained VT. She will continue medical therapy. She will be placed on beta-jessica therapy as tolerated. Her dose is being increased as it appears her heart rate and blood pressure can tolerate this at this time. 2. Hypotension She has been hypotensive. Her blood pressures have improved overall. 3. Hypertension She apparently has a history of hypertension has been on antihypertensive medications. Her blood pressure has been improving she may need to reinitiate antihypertensive therapy as she is able. 4. Hyperlipidemia She will continue risk factor evaluation care as deemed appropriate. 5. CVA She does have a history of a remote CVA. This may play a role into how aggressive the patient wants to be with cardiovascular evaluation care as if her lifestyle/quality of life is sedentary, etc., then she may not want to pursue additional invasive evaluation, etc., as she has noted above. At the moment the patient is to continue conservative medical management. There are no immediate plans for additional invasive cardiovascular evaluation or care. This note was generated using a voice recognition system and there may be incorrect words, spelling or punctuation that were not noted when reviewing the office note prior to saving.
[2020-08-19] MEDS: hydrALAZINE 20 MG/ML Vial 10 MG IV (15:01)
--- NOTE | 2020-08-19 15:17 | NURSING ---
report called to [facility]
== END 2020-08-19 15:46 | disposition skilled nursing facility (03) | DRG 871 ==
LOC: ED 13:39 → ICU 16:30 → PCU 08-17 13:42
PROVIDERS: Hospitalist; Internal Medicine Cardiovascular Disease; Internal Medicine Critical Care Medicine; Nurse Practitioner Family; Student in an Organized Health Care Education/Training Program; Admitting Provider Family Medicine; Emergency Provider Emergency Medicine; PCP Family Medicine; Visit Provider Internal Medicine
DX: A41.51 Sepsis due to Escherichia coli [E. coli] (principal); G93.41 Metabolic encephalopathy; I63.9 Cerebral infarction, unspecified; I21.A1 Myocardial infarction type 2; N39.0 Urinary tract infection, site not specified; N17.9 Acute kidney failure, unspecified; I47.2 Ventricular tachycardia; R65.20 Severe sepsis without septic shock; E11.649 Type 2 diabetes mellitus with hypoglycemia without coma; I10 Essential (primary) hypertension; E78.5 Hyperlipidemia, unspecified; K21.9 Gastro-esophageal reflux disease without esophagitis; I69.392 Facial weakness following cerebral infarction; R29.701 NIHSS score 1; Z66 Do not resuscitate; E87.6 Hypokalemia; D50.9 Iron deficiency anemia, unspecified; Z79.4 Long term (current) use of insulin; Z79.899 Other long term (current) drug therapy; I95.9 Hypotension, unspecified; R74.01 Elevation of levels of liver transaminase levels; E66.9 Obesity, unspecified; Z68.35 Body mass index [BMI] 35.0-35.9, adult
CPT/HCPCS: 36415; 70450; 71045; 76705; 76770; 80048; 80053; 80061; 80076; 81001; 82274; 82962; 83036; 83605; 83735; 84484; 85025; 85610; 85730; 87040; 87077; 87086; 87088; 87186; 87635; 92523; 92526; 92610; 93005; 93306; 97110; 97162; 97165; 97530; 97535; 97802; 99285; J7030; J7120; Q9957; A4216; C8929; U0002